=== PATIENT | male | born 1970 | race Caucasian/White ===

== ENCOUNTER 2017-03-25 14:41 | Emergency (ER) | payer OTHER ==
[2017-03-25 14:58] VITALS: TEMP 99.6
--- NOTE | 2017-03-25 15:17 | ED.PDOC ---
History of Present Illness - General Chief Complaint: Chest Pain/NE Stated Complaint: right sided chest pain,pain in head Time Seen by Provider: 03/25/17 15:09 Source: patient, RN notes reviewed, Vital Signs reviewed, EMS Exam Limitations: no limitations - History of Present Illness Initial Comments: Patient comes in with sharp/dull chest pain, "like someone kicked you in the fernandez" that started somewhere between noon and 14:00 today. Pain is to the right of his sternum. +SOB but no change from his baseline. + nausea. No diaphoresis but got hot. Pain does not seem to worsen with getting up and moving around. Upon arrival by EMS he got up and walked to the bathroom before getting on the ER bed. He also has been having a right sided NAVARRETE for the past several weeks. Reports it feels like a hot poker. Right behind his R ear. He has been taking baby aspirin and ibuprofen for this. Pain is different than his past migraines. Timing/Duration: 1-3 hours Severity/Quality: mild - chest pain, severe - headache, dull - chest, sharp - NAVARRETE Location: other - Just to right of sternum Chest Pain Radiation: no radiation Prior Chest Pain/Cardiac Workup: other - has atrial fibrillation Improving Factors: nothing Worsening Factors: nothing Aspirin Treatment Today: 81 mg x 2 Associated Symptoms: headache, nausea/vomiting, shortness of breath Allergies/Adverse Reactions: Allergies Tramadol Allergy (Verified 03/25/17 14:58) Home Medications: Ambulatory Orders Citalopram Hydrobromide 20 mg PO BID 11/24/15 Furosemide 40 mg PO DAILY 11/24/15 Levothyroxine Sodium 50 mcg PO DAILY 11/24/15 Lisinopril 40 mg PO BID 11/24/15 Potassium Chloride Microencaps [Klor-Con M20] 20 meq PO BID 11/24/15 Terazosin [Hytrin] 5 mg PO BID 11/24/15 acetaZOLAMIDE [Diamox] 250 mg PO DAILY 11/24/15 Apixaban [Eliquis] 5 mg PO BID 02/10/16 metFORMIN HCL [Glucophage] 500 mg PO BID 02/10/16 Acetaminophen W/ Codeine [Tylenol W/ CODEINE #3] 1 tablet PO Q4HR PRN #20 03/25 Cefuroxime Axetil [Ceftin] 500 mg PO BID #42 tab 03/25/17 Celecoxib 200 mg PO BID 03/25/17 Diltiazem HCl Coated Beads [Cartia Xt] 240 mg PO BID 03/25/17 Fluticasone Furoate-Vilanterol [Breo Ellipta] 1 inh IN DAILY 03/25/17 Lovastatin 20 mg PO DAILY 03/25/17 Melatonin 20 mg PO BEDTIME 03/25/17 Umeclidinium Kent [Incruse Ellipta] 62.5 mcg IN DAILY 03/25/17 acetaZOLAMIDE [Diamox] 250 mg PO DAILY 03/25/17 Review of Systems - Review of Systems Constitutional: States: no symptoms reported. Denies: diaphoresis EENTM: States: no symptoms reported Respiratory: States: short of breath - chronic, denies change from baseline Cardiology: States: chest pain. Denies: palpitations, syncope Gastrointestinal/Abdominal: States: nausea. Denies: abdominal pain Musculoskeletal: States: no symptoms reported Skin: States: no symptoms reported Neurological: States: see HPI, headache All other Systems: No Change from Baseline Past Medical History (General) - Patient Medical History Hx Seizures: No Hx Stroke: No Hx Dementia: No Hx Asthma: Yes - emphysemia Hx of COPD: Yes Hx Cardiac Disorders: Yes - Atrial fibrillation Hx Congestive Heart Failure: No Hx Pacemaker: No Hx Hypertension: Yes Hx Thyroid Disease: Yes Hx Diabetes: Yes Hx Gastroesophageal Reflux: No Hx Renal Disease: No Hx MRSA: Yes MRSA Source:: Wound - Vaccination History Hx Tetanus, Diphtheria Vaccination: No Hx Influenza Vaccination: No Hx Pneumococcal Vaccination: Yes - Social History Hx Tobacco Use: Yes Family Medical History - Family History Father Family History: Unknown Living Status: Cause of : NE Hx Family Stroke: Yes Mother Living Status: Cause of : Breast CA Physical Exam - Physical Exam General Appearance: Alert, No apparent distress, Obese, Well Developed, Well Hydrated, Well Nourished Eyes, Ears, Nose, Throat Exam: PERRL/EOMI, normal ENT inspection, pharynx normal , other - Very tender R mastoid sinus Neck: non-tender, full range of motion, supple, normal inspection Respiratory: lungs clear, normal breath sounds, no respiratory distress, no accessory muscle use, other - R sided chest wall tenderness Cardiovascular/Chest: no edema, no gallop, no murmur, irregularly irregular Gastrointestinal/Abdominal: normal bowel sounds, non tender, soft Extremity: normal range of motion, non-tender, normal inspection 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 Will get chest CT 03/25/17 18:16 Both sets of cardiac enzymes are normal. Will d/c home on Ceftin for sinusitis/mastoiditis Will give Tyl #3 for pain/NAVARRETE - Results/Orders Results/Orders: Laboratory Tests 03/25/17 03/25/17 03/25/17 14:12 14:12 14:12 WBC 10.1 RBC 5.58 Hgb 14.8 Hct 45.8 MCV 82.1 MCH 26.4 L MCHC 32.2 L RDW 15.6 H Plt Count 271 MPV 8.6 Absolute Neuts (auto) 8.50 H Absolute Lymphs (auto) 0.60 L Absolute Monos (auto) 0.50 Absolute Eos (auto) 0.40 Absolute Basos (auto) 0.10 Neutrophils % 84.3 H Lymphocytes % 6.0 L Monocytes % 5.4 Eosinophils % 3.8 Basophils % 0.5 D-Dimer, Quantitative 85467 H* Sodium 133 L Potassium 3.9 Chloride 99 L Carbon Dioxide 26 Anion Gap 11.9 L BUN 22 H Creatinine 1.30 BUN/Creatinine Ratio 16.9 Random Glucose 100 Serum Osmolality 269.8 L Calcium 8.9 Total Bilirubin 0.9 AST 17 ALT 17 Alkaline Phosphatase 62 Creatine Kinase 112 CK-MB (CK-2) 1.3 CK-MB (CK-2) % Not Reportable Troponin I < 0.02 B-Natriuretic Peptide 69.0 Serum Total Protein 7.5 Albumin 4.0 Globulin 3.5 Albumin/Globulin Ratio 1.1 03/25/17 17:47 WBC RBC Hgb Hct MCV MCH MCHC RDW Plt Count MPV Absolute Neuts (auto) Absolute Lymphs (auto) Absolute Monos (auto) Absolute Eos (auto) Absolute Basos (auto) Neutrophils % Lymphocytes % Monocytes % Eosinophils % Basophils % D-Dimer, Quantitative Sodium Potassium Chloride Carbon Dioxide Anion Gap BUN Creatinine BUN/Creatinine Ratio Random Glucose Serum Osmolality Calcium Total Bilirubin AST ALT Alkaline Phosphatase Creatine Kinase 107 CK-MB (CK-2) 0.8 CK-MB (CK-2) % Not Reportable Troponin I < 0.02 B-Natriuretic Peptide Serum Total Protein Albumin Globulin Albumin/Globulin Ratio - EKG/XRAY/CT EKG: Atrial, Fibrillation, nonspecific ST T wave Chg Comments: Other than no longer with RVR no significant change from 11/24/15 XRAY: chest - Min. enlarged heart, o/w nl per Rad CT: Chest CT: No PE per Radiologist CT Ordered: Yes - Head: R frontal/ethmoid sinusitis, o/w nl per Rad Departure - Departure Clinical Impression: Chest pain Qualifiers: Chest pain type: unspecified Qualified Code(s): R07.9 - Chest pain, unspecified Mastoiditis Qualifiers: Laterality: right Qualified Code(s): H70.91 - Unspecified mastoiditis, right ear Sinusitis, acute ethmoidal Qualifiers: Recurrence: non-recurrent Qualified Code(s): J01.20 - Acute ethmoidal sinusitis , unspecified Time of Disposition: 18:19 Disposition: Discharge to Home or Self Care Condition: Good Departure Forms: ED Discharge - Pt. Copy, Patient Portal Self Enrollment Instructions: DI for Mastoiditis-Adult, DI for Atypical Chest Pain, DI for Sinusitis Diet: resume usual diet Activity: increase activity as tolerated Referrals: Kayce Lundberg NP [Primary Care Provider] - 1-2 Weeks Prescriptions: Acetaminophen W/ Codeine [Tylenol W/ CODEINE #3] 1 tablet PO Q4HR PRN #20 PRN Reason: Headache/Migraine Pain Cefuroxime Axetil [Ceftin] 500 mg PO BID #42 tab Home Medications: Ambulatory Orders Citalopram Hydrobromide 20 mg PO BID 11/24/15 Furosemide 40 mg PO DAILY 11/24/15 Levothyroxine Sodium 50 mcg PO DAILY 11/24/15 Lisinopril 40 mg PO BID 11/24/15 Potassium Chloride Microencaps [Klor-Con M20] 20 meq PO BID 11/24/15 Terazosin [Hytrin] 5 mg PO BID 11/24/15 acetaZOLAMIDE [Diamox] 250 mg PO DAILY 11/24/15 Apixaban [Eliquis] 5 mg PO BID 02/10/16 metFORMIN HCL [Glucophage] 500 mg PO BID 02/10/16 Acetaminophen W/ Codeine [Tylenol W/ CODEINE #3] 1 tablet PO Q4HR PRN #20 03/25 Cefuroxime Axetil [Ceftin] 500 mg PO BID #42 tab 03/25/17 Celecoxib 200 mg PO BID 03/25/17 Diltiazem HCl Coated Beads [Cartia Xt] 240 mg PO BID 03/25/17 Fluticasone Furoate-Vilanterol [Breo Ellipta] 1 inh IN DAILY 03/25/17 Lovastatin 20 mg PO DAILY 03/25/17 Melatonin 20 mg PO BEDTIME 03/25/17 Umeclidinium [place] [Incruse Ellipta] 62.5 mcg IN DAILY 03/25/17 acetaZOLAMIDE [Diamox] 250 mg PO DAILY 03/25/17
--- NOTE | 2017-03-25 15:27 | RAD ---
EXAM DESCRIPTION: Chest,1 View CLINICAL HISTORY: Sharp NAVARRETE behind R ear COMPARISON: February 10, 2016 FINDINGS: The study is limited by underpenetrated technique. This in mind, the heart is at the upper limits of normal size, stable. There is no airspace consolidation or pleural effusion. The bronchovascular markings are within normal limits, and the lungs are not hyperinflated. There is no pneumothorax or acute fracture. IMPRESSION: Borderline heart size, otherwise unremarkable exam. Electronically signed by: Dougie Guerrero MD 03/25/2017 3:26 PM CDT
--- NOTE | 2017-03-25 15:48 | CT ---
EXAM DESCRIPTION: Head CLINICAL HISTORY: Chest pain w/ SOB headache COMPARISON: None TECHNIQUE: Noncontrast transaxial CT images of the head are obtained from base to vertex. This exam was performed according to our departmental dose-optimization program, which includes automated exposure control, adjustment of the mA and/or kV according to patient size and/or use of iterative reconstruction technique. FINDINGS: The midline structures are not displaced. The sulci are age appropriate. The lateral, third, and fourth ventricles are normal in size, shape, and anatomic positioning. There is no evidence of mass, mass effect, hydrocephalus, or acute intracranial hemorrhage. No abnormal extra axial fluid collections are seen. Normal mensah-white differentiation is seen. Mild calcifications of the intracranial carotid arteries are seen. The visualized bone windows show no depressed skull fracture or significant abnormality. Mucosal thickening and opacification of the small right frontal sinus is seen. Mucosal thickening in several ethmoid air cells is noted. Probable cyst around the root of a right mid maxillary molar incidentally noted.. IMPRESSION: 1. No acute abnormality is seen on noncontrast CT of the head. 2. Mild subacute to chronic frontal and ethmoid sinus disease. Electronically signed by: Sal Price MD 03/25/2017 3:47 PM CDT
--- NOTE | 2017-03-25 16:28 | CT ---
PROCEDURE: CTA Chest CLINICAL HISTORY: 46 years Male R side CP/SOB/Elevated D-dimer COMPARISON: 02/10/2016 TECHNIQUE: Contiguous axial images were obtained through the chest during the infusion of IV contrast. Reformatted images obtained. MIP reformatted images obtained. This exam was performed according to our department optimization program which includes automated exposure control, adjustment of the mA and/or kv according to patient size and/or use of iterative reconstruction technique. FINDINGS: Cardiac size is at the upper limits of normal. No evidence aortic dissection or rupture. No evidence of pulmonary embolus. No consolidating infiltrate or pneumothorax. No evidence of pericardial pleural effusion. Mildly prominent hilar lymph nodes. Mildly prominent 80 cm lymph nodes. Straightening of the normal thoracic kyphosis. IMPRESSION:No evidence of pulmonary embolus No evidence of acute process Mildly prominent mediastinal and hilar lymph nodes which are nonspecific Electronically signed by: Claudine Trejo 03/25/2017 4:27 PM CDT
[2017-03-25] MEDS ORDERED: ONDANSETRON INJ 4 MG/2 ML VIAL IV ONE (16:36)
[2017-03-25] MEDS ORDERED: methylPREDNISolone SODIUM SUC 125 MG/2 ML VIAL IV ONE (16:36)
[2017-03-25] MEDS ORDERED: MORPHINE SULFATE INJ 10 MG/ML VIAL IV ONE (16:36)
[2017-03-25] MEDS ORDERED: KETOROLAC TROMETHAMINE INJ 30 MG/ML VIAL IV ONE (17:53)
[2017-03-25] MEDS ORDERED: CEFUROXIME AXETIL TAB 250 MG TAB PO ONE (18:16)
[2017-03-25 18:34] VITALS: BP 139/75; O2SAT 99
== END 2017-03-25 18:34 | disposition home or self-care (01) ==
LOC: ER 14:41
DX: R07.9 Chest pain, unspecified (principal); H70.91 Unspecified mastoiditis, right ear; J01.20 Acute ethmoidal sinusitis, unspecified; I48.91 Unspecified atrial fibrillation; E11.9 Type 2 diabetes mellitus without complications; Z87.891 Personal history of nicotine dependence; J44.9 Chronic obstructive pulmonary disease, unspecified; Z79.899 Other long term (current) drug therapy; Z88.6 Allergy status to analgesic agent
CPT/HCPCS: 36415; 70450; 71010; 71275; 80053; 82550; 82553; 83880; 84484; 85025; 85379; 93005; J1885; J2270; J2405; J2930

== ENCOUNTER 2017-06-26 20:23 | Emergency (ER) | payer OTHER, MEDICARE ==
--- NOTE | 2017-06-26 20:29 | ED.PDOC ---
History of Present Illness - General Chief Complaint: Trauma Time Seen by Provider: 06/26/17 20:25 Source: patient, RN notes reviewed, EMS notes reviewed Additional Information: 47 YEAR OLD WHITE MALE FELL OFF HIS BED TODAY STRUCK THE RIGHT SIDE OF HIS HEAD ON THE OXYGEN CYLINDER POSSIBLE LOSS OF CONCIOUNESS FOR MORE THAN 30 MIN ALSO COMPLAINT OF CHRONIC RIGHT LEG PAIN HE HAS HISTORY OF TYPE II DM HTN ATRIAL FIBRILLATION AND HE THINKS HE IS ON ANTICOAGULATION ELIQUIS HE HAS NOT SEEN A SUBSYSTEMS ENGINEER TODAY HE HAS NO SYMPTOMS TO SUGGEST CHF OR A TIA HIS MAIN CONCERN IS RIGHT LEG PAIN FOR SEVERAL MONTHS APPARENTLY HIS PCP HAS WORKED HIM UP WITH MRI BUT REPORTED NORMAL HE HAS GOOD PULSES IN BOTH LOWER EXTREMITY SO UNLIKELY TO BE VASCULAR ETIOLOGY - History of Present Illness Occurred: just prior to arrival Injuries/Pain Location: head Loss of Consciousness: prolonged (minutes) Improving Factors: nothing Worsening Factors: nothing Associated Symptoms (Fall): headache Allergies/Adverse Reactions: Allergies Tramadol Allergy (Verified 03/25/17 14:58) Home Medications: Ambulatory Orders Citalopram Hydrobromide 20 mg PO BID 11/24/15 Furosemide 40 mg PO DAILY 11/24/15 Levothyroxine Sodium 50 mcg PO DAILY 11/24/15 Lisinopril 40 mg PO BID 11/24/15 Potassium Chloride Microencaps [Klor-Con M20] 20 meq PO BID 11/24/15 acetaZOLAMIDE [Diamox] 250 mg PO DAILY 11/24/15 Apixaban [Eliquis] 5 mg PO BID 02/10/16 metFORMIN HCL [Glucophage] 500 mg PO BID 02/10/16 Acetaminophen W/ Codeine [Tylenol W/ CODEINE #3] 1 tablet PO Q4HR PRN #20 03/25 Cefuroxime Axetil [Ceftin] 500 mg PO BID #42 tab 03/25/17 Celecoxib 200 mg PO BID 03/25/17 Diltiazem HCl Coated Beads [Cartia Xt] 240 mg PO BID 03/25/17 Fluticasone Furoate-Vilanterol [Breo Ellipta] 1 inh IN DAILY 03/25/17 Lovastatin 20 mg PO DAILY 03/25/17 Melatonin 20 mg PO BEDTIME 03/25/17 Umeclidinium Bazine [Incruse Ellipta] 62.5 mcg IN DAILY 03/25/17 HYDROcodone 10MG/APAP 325MG [[place] 10/325] 1 ea PO 06/26/17 Tramadol HCl [Ultram] 50 mg PO Q6H PRN #30 tab 06/26/17 Review of Systems - Review of Systems Constitutional: States: see HPI EENTM: States: no symptoms reported Respiratory: States: no symptoms reported Cardiology: States: no symptoms reported Gastrointestinal/Abdominal: States: no symptoms reported Genitourinary: States: no symptoms reported Musculoskeletal: States: see HPI Skin: States: no symptoms reported Neurological: States: see HPI Endocrine: States: no symptoms reported Hematologic/Lymphatic: States: no symptoms reported All other Systems: Reviewed and Negative Past Medical History (General) - Patient Medical History Hx Seizures: No Hx Stroke: No Hx Dementia: No Hx Asthma: Yes - emphysemia Hx of COPD: Yes Hx Cardiac Disorders: Yes - Atrial fibrillation Hx Congestive Heart Failure: No Hx Pacemaker: No Hx Hypertension: Yes Hx Thyroid Disease: Yes Hx Diabetes: Yes Hx Gastroesophageal Reflux: No Hx Renal Disease: No Hx MRSA: Yes MRSA Source:: Wound - Vaccination History Hx Tetanus, Diphtheria Vaccination: No Hx Influenza Vaccination: No Hx Pneumococcal Vaccination: Yes - Social History Hx Tobacco Use: Yes Physical Exam - Physical Exam General Appearance: Alert, Comfortable, Obese Head Injury: no evidence of injury Eye Exam: bilateral normal ENT Exam: hearing grossly normal, no evidence of ENT injury, no dental injury Peripheral Pulses: radial,right: 2+, radial,left: 2+, femoral,right: 2+, femoral ,left: 2+ Cardiovascular/Respiratory: no M/R/G, normal peripheral pulses, no JVD, normal breath sounds, no respiratory distress Gastrointestinal/Abdominal: normal bowel sounds, non tender, soft, no organomegaly, no pulsatile mass Back Exam: normal inspection Extremity Exam: no evidence of injury, normal range of motion - [place]all Coma Score Best Eye Response (Rangel): (4) open spontaneously Best Verbal Response ([place]all): (5) oriented Best Motor Response (Rangel): (6) obeys commands Departure - Departure Clinical Impression: Head injury Qualifiers: Encounter type: subsequent encounter Qualified Code(s): S09.90XD - Unspecified injury of head, subsequent encounter Atrial fibrillation Qualifiers: Atrial fibrillation type: chronic Qualified Code(s): I48.2 - Chronic atrial fibrillation Time of Disposition: 22:24 Disposition: Discharge to Home or Self Care Departure Forms: ED Discharge - Pt. Copy, Patient Portal Self Enrollment Instructions: DI for Trauma Diet: diabetic diet Activity: increase activity as tolerated Referrals: Kayce Lundberg NP [Family Provider] - 1-2 Weeks Prescriptions: Tramadol HCl [Ultram] 50 mg PO Q6H PRN #30 tab PRN Reason: Pain Home Medications: Ambulatory Orders Citalopram Hydrobromide 20 mg PO BID 11/24/15 Furosemide 40 mg PO DAILY 11/24/15 Levothyroxine Sodium 50 mcg PO DAILY 11/24/15 Lisinopril 40 mg PO BID 11/24/15 Potassium Chloride Microencaps [Klor-Con M20] 20 meq PO BID 11/24/15 acetaZOLAMIDE [Diamox] 250 mg PO DAILY 11/24/15 Apixaban [Eliquis] 5 mg PO BID 02/10/16 metFORMIN HCL [Glucophage] 500 mg PO BID 02/10/16 Acetaminophen W/ Codeine [Tylenol W/ CODEINE #3] 1 tablet PO Q4HR PRN #20 03/25 Cefuroxime Axetil [Ceftin] 500 mg PO BID #42 tab 03/25/17 Celecoxib 200 mg PO BID 03/25/17 Diltiazem HCl Coated Beads [Cartia Xt] 240 mg PO BID 03/25/17 Fluticasone Furoate-Vilanterol [Breo Ellipta] 1 inh IN DAILY 03/25/17 Lovastatin 20 mg PO DAILY 03/25/17 Melatonin 20 mg PO BEDTIME 03/25/17 Umeclidinium Bazine [Incruse Ellipta] 62.5 mcg IN DAILY 03/25/17 HYDROcodone 10MG/APAP 325MG [[place] 10/325] 1 ea PO 06/26/17 Tramadol HCl [Ultram] 50 mg PO Q6H PRN #30 tab 06/26/17
[2017-06-26 20:35] VITALS: TEMP 99.7
--- NOTE | 2017-06-26 21:33 | CT ---
Clinical History : HEAD TRAUMA , MAIN Exam : CT Head without contrast 06/26/2017 8:31 PM PISTON [employer]ER Comparisons : none. Technique : Volumetric CT acquisition was performed through the brain. Images in the axial, coronal, and sagittal planes were presented for interpretation. This exam was performed according to our departmental dose-optimization program, which includes automated exposure control, adjustment of the mA and/or kV according to patient size and/or use of iterative reconstruction technique. Radiation dose : [id number] Findings: The soft tissue structures of the face, scalp, and orbits are normal. The globes remain intact. There is mucosal thickening throughout the left maxillary sinus and ethmoid air cells as well as the left sphenoid sinus. The rest of the paranasal sinuses and mastoid air cells are largely clear. The calvarium remains intact . There is no acute intracranial hemorrhage, midline shift, or mass effect. The ventricles are normal in size and the posterior fossa structures are normal in appearance. Limited evaluation of the vasculature demonstrates no gross abnormalities. There is no CT evidence of acute infarction. Impression: 1. No acute intracranial traumatic injury. 2. Sinus disease. Electronically signed by: Burt Steward MD 06/26/2017 9:32 PM PISTON [employer]
[2017-06-26 23:30] VITALS: BP 154/103; O2SAT 96
== END 2017-06-26 23:00 | disposition home or self-care (01) ==
LOC: ER 20:23
DX: S09.90XA Unspecified injury of head, initial encounter (principal); I48.2 Chronic atrial fibrillation; I10 Essential (primary) hypertension; E11.9 Type 2 diabetes mellitus without complications; E07.9 Disorder of thyroid, unspecified; W06.XXXA Fall from bed, initial encounter; Y92.9 Unspecified place or not applicable

== ENCOUNTER 2017-07-18 21:29 | Inpatient (IN) | payer OTHER ==
[2017-07-18] MEDS ORDERED: IPRATROPIUM/ALBUTEROL 3 ML VIAL NEB ONE ×2 (21:35→22:00)
[2017-07-18] MEDS ORDERED: ALBUTEROL SULFATE 2.5 MG/3 ML VIAL NEB ONE ×2 (21:40→22:00)
[2017-07-18] MEDS ORDERED: LEVALBUTEROL NEBS 1.25 MG/3 ML VIAL NEB ONE ×2 (21:56→22:01)
[2017-07-18] MEDS ORDERED: LACTATED RINGERS 1,000 ML IVS ONE (22:08)
[2017-07-18] MEDS ORDERED: methylPREDNISolone SODIUM SUC 125 MG/2 ML VIAL IV ONE (22:08)
[2017-07-18] MEDS ORDERED: SODIUM CHLORIDE 0.9% 1000ML 1,000 ML IVS ONE (22:17)
[2017-07-18] MEDS ORDERED: SODIUM CHLORIDE 0.9% 1000ML 1,000 ML ONE (22:18)
--- NOTE | 2017-07-18 22:54 | RAD ---
EXAM DESCRIPTION: Chest,1 View CLINICAL HISTORY: sob COMPARISON: None FINDINGS: Cardiac silhouette is enlarged which could be secondary to cardiomegaly. Indistinctness of pulmonary vessels could be secondary to pulmonary edema. There is no pneumothorax. There is no acute osseous process visualized. IMPRESSION: Indistinctness of pulmonary vessels could be secondary to pulmonary edema. Electronically signed by: Eric Chowdhury MD 07/18/2017 10:53 PM [employer]
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
[2017-07-18] MEDS ORDERED: BUMETANIDE 0.25 MG/ML VIAL IV ONE (23:47)
[2017-07-19] MEDS ORDERED: cefTRIAXone SODIUM 1 GM in SODIUM CHL 0.9% 50ML MIN-BAG+ 50 ML IVPB ONE (01:33)
[2017-07-19] MEDS ORDERED: cefTRIAXone SODIUM 1 GM VIAL ONE (02:12)
[2017-07-19] MEDS ORDERED: SODIUM CHL 0.9% 50ML MIN-BAG+ 50 ML IVPB ONE (02:12)
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
[2017-07-19] MEDS ORDERED: GLUCAGON INJ 1 MG VIAL SUBCU PRN (02:37)
[2017-07-19] MEDS ORDERED: LEVALBUTEROL NEBS 1.25 MG/3 ML VIAL INH PRN (02:37)
[2017-07-19] MEDS ORDERED: DEXTROSE 50% 25 GM/50 ML SYG IV PRN (02:37)
[2017-07-19] MEDS: NITROGLYCERIN 0.4 MG/HR PATCH TOP SCH (03:14)
[2017-07-19] MEDS: IV SET AND CAP CHANGE INJ INJ SCH (03:21)
[2017-07-19] MEDS ORDERED: SODIUM CHLORIDE 0.9% 250ML 250 ML ONE (03:41)
[2017-07-19] MEDS ORDERED: AZITHROMYCIN IV 500 MG VIAL IVPB ONE (03:42)
[2017-07-19] MEDS ORDERED: DEXAMETHASONE INJ 2 MG, SODIUM CHLORIDE 0.9% NEB 3 ML NEB ONE ×2 (03:47)
[2017-07-19] MEDS ORDERED: LISINOPRIL 10 MG TAB PO ONE (03:49)
[2017-07-19] MEDS ORDERED: ALPRAZolam 0.25 MG TAB PO ONE (03:56)
[2017-07-19] MEDS: AZITHROMYCIN IV 500 MG in SODIUM CHLORIDE 0.9% 250ML 250 ML IVPB SCH (04:00)
[2017-07-19] MEDS: methylPREDNISolone SODIUM SUC 125 MG/2 ML VIAL IV SCH ×3 (04:06→17:03)
[2017-07-19] MEDS: SODIUM CHLORIDE 0.9% (FLUSH) 10 ML SYG IV PRN (04:06)
[2017-07-19] MEDS ORDERED: DEXAMETHASONE INJ 4 MG/ML VIAL ONE (04:11)
[2017-07-19] MEDS ORDERED: SODIUM CHLORIDE 0.9% NEB 3 ML VIAL ONE (04:11)
[2017-07-19] MEDS ORDERED: DILTIAZEM HCL COATED BEADS 240 MG PO SCH (06:00)
[2017-07-19] MEDS: HYDROcodone 10MG/APAP 325MG 1 EA TAB PO PRN (06:38)
--- NOTE | 2017-07-19 07:45 | PCM.CORE ---
Physician DVT/VTE - Prophylaxis Currently: Patient already on anticoagulation therapy - gillian - Nurse DVT Assessment & Total Each Risk Factor Represents 3 Points: Medical PT with Hx of [place], CHF, Severe infection/sepsis Each Risk Factor Represents 1 Point: Age 41-60 Each Risk Factor is 1 Point: Varicose Veins/Edema Legs, Obesity (BMI >25), Serious Lung disease (pnemonia <1month, COPD, emphysema,etc) DVT Assessment Score: 7 - 5 or more Very High Risk Treatments: Early Ambulation *, Sequential Compression Device
[2017-07-19] MEDS: INSULIN LISPRO 100 UNITS/ML PEN SUBCU SCH ×4 (08:04→20:57)
[2017-07-19] MEDS: LEVALBUTEROL NEBS 1.25 MG/3 ML VIAL INH SCH ×2 (08:41→16:10)
[2017-07-19] MEDS: NON-FORMULARY MEDICATION 1 EA MIS (Fluticasone Furoate-Vilanterol [Breo Ellipta 100-25 Mcg IN SCH (09:00)
[2017-07-19] MEDS ORDERED: HYDROcodone 10MG/APAP 325MG 1 EA TAB PO SCH (09:00)
[2017-07-19] MEDS ORDERED: FUROSEMIDE INJ 100 MG/10 ML VIAL IV SCH (09:00)
[2017-07-19] MEDS ORDERED: FUROSEMIDE INJ 40 MG/4 ML VIAL IV ONE (09:00)
[2017-07-19] MEDS: CELECOXIB 100 MG CAP PO SCH ×2 (09:15→20:58)
[2017-07-19] MEDS: acetaZOLAMIDE 250 MG TAB PO SCH (09:15)
[2017-07-19] MEDS: LEVOTHYROXINE SODIUM 0.025 MG TAB PO SCH (09:15)
[2017-07-19] MEDS: metFORMIN HCL 500 MG TAB PO SCH ×2 (09:16→17:05)
[2017-07-19] MEDS: APIXABAN 2.5 MG TAB PO SCH ×2 (09:16→20:59)
[2017-07-19] MEDS: SIMVASTATIN 10 MG TAB PO SCH ×3 (09:16→21:01)
[2017-07-19] MEDS: guaiFENesin ER TAB 600 MG TAB PO SCH ×2 (09:17→21:00)
[2017-07-19] MEDS: POTASSIUM CHLORIDE 20 MEQ TAB PO SCH ×2 (09:17→17:05)
[2017-07-19] MEDS: CITALOPRAM HBR 20 MG TAB PO SCH ×2 (09:19→20:59)
[2017-07-19] MEDS: NON-FORMULARY MEDICATION 1 EA MIS (Umeclidinium Bromide [Incruse Ellipta] 62.5 MCG) IN SCH (09:20)
[2017-07-19] MEDS ORDERED: MELATONIN 3 MG TAB ONE (20:03)
[2017-07-19] MEDS ORDERED: NON-FORMULARY MEDICATION 1 EA MIS (Melatonin [Melatonin] 20 MG) PO SCH (21:00)
[2017-07-19] MEDS ORDERED: LISINOPRIL 10 MG TAB PO SCH (21:00)
[2017-07-19] MEDS: LISINOPRIL 10 MG TAB PO SCH (21:26)
[2017-07-19] MEDS: MELATONIN 3 MG TAB PO SCH (21:28)
[2017-07-20] MEDS: LEVALBUTEROL NEBS 1.25 MG/3 ML VIAL INH SCH ×4 (00:01→23:34)
[2017-07-20] MEDS ORDERED: SODIUM CHLORIDE 0.9% 250ML 250 ML ONE (03:14)
[2017-07-20] MEDS ORDERED: AZITHROMYCIN IV 500 MG VIAL IVPB ONE (03:15)
[2017-07-20] MEDS: AZITHROMYCIN IV 500 MG in SODIUM CHLORIDE 0.9% 250ML 250 ML IVPB SCH (03:21)
[2017-07-20] MEDS: NITROGLYCERIN 0.4 MG/HR PATCH TOP SCH (03:21)
[2017-07-20] MEDS: LEVOTHYROXINE SODIUM 0.025 MG TAB PO SCH (06:00)
--- NOTE | 2017-07-20 06:58 | RAD ---
EXAM: Two view chest. INDICATION: Pneumonia. COMPARISON: Chest x-ray: 07/18/2017. FINDINGS: Cardiac silhouette: Enlarged Alix: Pulmonary vascular congestion Lobar consolidation: None. Pleural effusion: None. Pneumothorax: None. Other: None. Bones: Unremarkable. Other: None. IMPRESSION: Pulmonary vascular congestion Electronically signed by: Maximino Washington MD 07/20/2017 6:57 AM [employer]HICLE [employer]SEM[employer] SUPERVISOR Workstation: [id number]
[2017-07-20] MEDS: INSULIN LISPRO 100 UNITS/ML PEN SUBCU SCH ×4 (07:11→21:00)
[2017-07-20] MEDS: metFORMIN HCL 500 MG TAB PO SCH ×2 (07:55→17:40)
[2017-07-20] MEDS: POTASSIUM CHLORIDE 20 MEQ TAB PO SCH ×2 (07:55→17:40)
[2017-07-20] MEDS ORDERED: methylPREDNISolone SODIUM SUC 125 MG/2 ML VIAL IM ONE (08:37)
[2017-07-20] MEDS: NON-FORMULARY MEDICATION 1 EA MIS (Umeclidinium Bromide [Incruse Ellipta] 62.5 MCG) IN SCH (09:00)
[2017-07-20] MEDS: NON-FORMULARY MEDICATION 1 EA MIS (Fluticasone Furoate-Vilanterol [Breo Ellipta 100-25 Mcg IN SCH (09:00)
[2017-07-20] MEDS: guaiFENesin ER TAB 600 MG TAB PO SCH ×2 (09:27→20:59)
[2017-07-20] MEDS: APIXABAN 2.5 MG TAB PO SCH ×2 (09:27→20:59)
[2017-07-20] MEDS: acetaZOLAMIDE 250 MG TAB PO SCH (09:27)
[2017-07-20] MEDS: LISINOPRIL 10 MG TAB PO SCH ×2 (09:28→20:59)
[2017-07-20] MEDS: CITALOPRAM HBR 20 MG TAB PO SCH ×2 (09:28→20:58)
[2017-07-20] MEDS: CELECOXIB 100 MG CAP PO SCH ×2 (09:28→20:58)
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
[2017-07-20] MEDS: methylPREDNISolone SODIUM SUC 40 MG/ML VIAL IV SCH ×2 (15:00→22:32)
[2017-07-20] MEDS: REMOVE OLD PATCH TOP SCH (15:06)
[2017-07-20] MEDS: SIMVASTATIN 10 MG TAB PO SCH (20:59)
[2017-07-20] MEDS: MELATONIN 3 MG TAB PO SCH (21:00)
[2017-07-21] MEDS ORDERED: ACETAMINOPHEN 325 MG TAB PO PRN (02:11)
[2017-07-21] MEDS ORDERED: SODIUM CHLORIDE 0.9% 250ML 250 ML ONE ×2 (03:07→19:24)
[2017-07-21] MEDS ORDERED: AZITHROMYCIN IV 500 MG VIAL IVPB ONE ×2 (03:08→19:25)
[2017-07-21] MEDS: AZITHROMYCIN IV 500 MG in SODIUM CHLORIDE 0.9% 250ML 250 ML IVPB SCH (03:20)
[2017-07-21] MEDS: NITROGLYCERIN 0.4 MG/HR PATCH TOP SCH (03:20)
[2017-07-21] MEDS: methylPREDNISolone SODIUM SUC 40 MG/ML VIAL IV SCH ×3 (06:01→21:35)
[2017-07-21] MEDS: LEVOTHYROXINE SODIUM 0.025 MG TAB PO SCH (06:01)
[2017-07-21] MEDS: INSULIN LISPRO 100 UNITS/ML PEN SUBCU SCH ×4 (07:35→21:21)
[2017-07-21] MEDS: POTASSIUM CHLORIDE 20 MEQ TAB PO SCH ×2 (07:36→16:39)
[2017-07-21] MEDS: metFORMIN HCL 500 MG TAB PO SCH ×2 (07:36→16:39)
[2017-07-21] MEDS: NON-FORMULARY MEDICATION 1 EA MIS (Fluticasone Furoate-Vilanterol [Breo Ellipta 100-25 Mcg IN SCH (08:14)
[2017-07-21] MEDS: NON-FORMULARY MEDICATION 1 EA MIS (Umeclidinium Bromide [Incruse Ellipta] 62.5 MCG) IN SCH (08:15)
[2017-07-21] MEDS: LEVALBUTEROL NEBS 1.25 MG/3 ML VIAL INH SCH ×2 (08:20→16:04)
[2017-07-21] MEDS: CELECOXIB 100 MG CAP PO SCH ×2 (08:52→21:18)
[2017-07-21] MEDS: APIXABAN 2.5 MG TAB PO SCH ×2 (08:53→21:18)
[2017-07-21] MEDS: acetaZOLAMIDE 250 MG TAB PO SCH (08:53)
[2017-07-21] MEDS: CITALOPRAM HBR 20 MG TAB PO SCH ×2 (08:53→21:21)
[2017-07-21] MEDS: guaiFENesin ER TAB 600 MG TAB PO SCH ×2 (08:53→21:18)
[2017-07-21] MEDS: HYDROcodone 10MG/APAP 325MG 1 EA TAB PO PRN (09:01)
[2017-07-21] MEDS: LISINOPRIL 10 MG TAB PO SCH ×3 (09:03→21:57)
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
[2017-07-21] MEDS: REMOVE OLD PATCH TOP SCH (15:22)
[2017-07-21] MEDS: MELATONIN 3 MG TAB PO SCH (21:21)
[2017-07-21] MEDS: SIMVASTATIN 10 MG TAB PO SCH (21:21)
[2017-07-22] MEDS: LEVALBUTEROL NEBS 1.25 MG/3 ML VIAL INH SCH ×2 (00:36→07:45)
[2017-07-22] MEDS: NITROGLYCERIN 0.4 MG/HR PATCH TOP SCH (03:14)
[2017-07-22] MEDS: AZITHROMYCIN IV 500 MG in SODIUM CHLORIDE 0.9% 250ML 250 ML IVPB SCH (03:15)
[2017-07-22] MEDS: SODIUM CHLORIDE 0.9% (FLUSH) 10 ML SYG IV PRN (03:15)
[2017-07-22] MEDS: IV SET AND CAP CHANGE INJ INJ SCH (03:22)
[2017-07-22] MEDS: LEVOTHYROXINE SODIUM 0.025 MG TAB PO SCH (06:03)
[2017-07-22 06:12] VITALS: TEMP 97.3
[2017-07-22] MEDS: INSULIN LISPRO 100 UNITS/ML PEN SUBCU SCH (07:04)
--- NOTE | 2017-07-22 07:09 | RAD ---
EXAM DESCRIPTION: Chest,2 Views CLINICAL HISTORY: pna COMPARISON: July 20, 2017 FINDINGS: The heart is enlarged but stable from the prior study. The central bronchovascular markings are indistinct. Bilateral interstitial opacities are noted without airspace consolidation or definite pleural effusion. The right costophrenic angle is excluded from the frontal view. There is no pneumothorax or acute fracture. IMPRESSION: Cardiomegaly with bilateral interstitial prominence suggestive of pulmonary vascular congestion. Infection, including viral or other atypical causes, is a less likely consideration. Overall, findings do not appear significantly changed from 2 days prior. Electronically signed by: Dougie Guerrero MD 07/22/2017 7:08 AM [facility]
[2017-07-22] MEDS: NON-FORMULARY MEDICATION 1 EA MIS (Fluticasone Furoate-Vilanterol [Breo Ellipta 100-25 Mcg IN SCH (07:45)
[2017-07-22] MEDS: NON-FORMULARY MEDICATION 1 EA MIS (Umeclidinium Bromide [Incruse Ellipta] 62.5 MCG) IN SCH (07:46)
[2017-07-22] MEDS: POTASSIUM CHLORIDE 20 MEQ TAB PO SCH (07:58)
[2017-07-22] MEDS: metFORMIN HCL 500 MG TAB PO SCH (07:58)
[2017-07-22] MEDS: CITALOPRAM HBR 20 MG TAB PO SCH (08:03)
[2017-07-22] MEDS: CELECOXIB 100 MG CAP PO SCH (08:03)
[2017-07-22] MEDS: acetaZOLAMIDE 250 MG TAB PO SCH (08:03)
[2017-07-22] MEDS: guaiFENesin ER TAB 600 MG TAB PO SCH (08:03)
[2017-07-22] MEDS: APIXABAN 2.5 MG TAB PO SCH (08:03)
[2017-07-22] MEDS: LISINOPRIL 10 MG TAB PO SCH (08:04)
[2017-07-22] MEDS ORDERED: predniSONE 20 MG TAB PO SCH (09:00)
[2017-07-22] MEDS ORDERED: FUROSEMIDE 40 MG TAB PO SCH (10:00)
[2017-07-22 10:02] VITALS: BP 125/82; O2SAT 96
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
== END 2017-07-22 11:11 | disposition home or self-care (01) | DRG 918 ==
LOC: ER 21:29 → OBSVTOIN 07-19 02:22 → MS 07-19 02:22
PROVIDERS: ADMIT Nurse Practitioner Family; ATTEND Nurse Practitioner Acute Care
DX: T59.811A Toxic effect of smoke, accidental (unintentional), initial encounter (principal); J44.1 Chronic obstructive pulmonary disease with (acute) exacerbation; Z68.43 Body mass index [BMI] 50.0-59.9, adult; I13.0 Hypertensive heart and chronic kidney disease with heart failure and stage 1 through stage 4 chronic kidney disease, or unspecified chronic kidney disease; J44.0 Chronic obstructive pulmonary disease with (acute) lower respiratory infection; I50.9 Heart failure, unspecified; E78.5 Hyperlipidemia, unspecified; E03.9 Hypothyroidism, unspecified; I48.2 Chronic atrial fibrillation; G47.33 Obstructive sleep apnea (adult) (pediatric); N18.2 Chronic kidney disease, stage 2 (mild); E11.22 Type 2 diabetes mellitus with diabetic chronic kidney disease; L40.9 Psoriasis, unspecified; F41.9 Anxiety disorder, unspecified; E66.01 Morbid (severe) obesity due to excess calories; J70.5 Respiratory conditions due to smoke inhalation; T46.1X6A Underdosing of calcium-channel blockers, initial encounter; M54.12 Radiculopathy, cervical region; M54.16 Radiculopathy, lumbar region; R79.89 Other specified abnormal findings of blood chemistry; Z79.02 Long term (current) use of antithrombotics/antiplatelets; Z88.6 Allergy status to analgesic agent; Z87.891 Personal history of nicotine dependence; Z79.84 Long term (current) use of oral hypoglycemic drugs; Y92.029 Unspecified place in mobile home as the place of occurrence of the external cause; Z91.138 Patient's unintentional underdosing of medication regimen for other reason; Z99.81 Dependence on supplemental oxygen; Z79.891 Long term (current) use of opiate analgesic; Z79.899 Other long term (current) drug therapy; Z86.14 Personal history of Methicillin resistant Staphylococcus aureus infection

== ENCOUNTER 2018-06-02 18:32 | Emergency (ER) | payer OTHER ==
[2018-06-02] MEDS ORDERED: IPRATROPIUM/ALBUTEROL 3 ML VIAL NEB ONE (18:59)
[2018-06-02] MEDS ORDERED: SODIUM CHLORIDE 0.9% 1000ML 1,000 ML IVS ONE (19:00)
--- NOTE | 2018-06-02 19:03 | ED.PDOC ---
History of Present Illness - General Chief Complaint: Respiratory Problem Stated Complaint: shortness of breath Time Seen by Provider: 06/02/18 18:53 Source: patient Exam Limitations: no limitations - History of Present Illness Comments: Pt has had cough for 4-5 days. Today fever/ chills and weakness with worsening SOB began Timing/Duration: this morning Cough Quality/Degree: severe, productive cough Possible Cause: occasional episodes Improving Factors: nothing Worsening Factors: nothing Associated Symptoms: chest pain/soreness, fever/chills, headache, shortness of breath, wheezing Respiratory Risk Factors: no cause identified Allergies/Adverse Reactions: Allergies Tramadol Allergy (Verified 07/18/17 21:59) Home Medications: Ambulatory Orders Potassium Chloride Microencaps [Klor-Con M20] 20 meq PO BID 11/24/15 HYDROcodone 10MG/APAP 325MG [[place] 10/325] 1 ea PO TID 06/26/17 Apixaban [Eliquis] 5 mg PO BID #60 tab 07/22/17 Cefdinir 300 mg PO BID #14 capsule 07/22/17 Celecoxib 200 mg PO BID #60 cap 07/22/17 Citalopram Hydrobromide 20 mg PO BID #60 tab 07/22/17 Diltiazem HCl Coated Beads [Cartia Xt] 240 mg PO BID #60 cap 07/22/17 Fluticasone Furoate-Vilanterol [Breo Ellipta 100-25 Mcg/INH] 1 inh IN DAILY #1 inh 07/22/17 Furosemide 40 mg PO DAILY #30 tab 07/22/17 Levothyroxine Sodium 50 mcg PO DAILY #30 tab 07/22/17 Lisinopril [Prinivil] 10 mg PO BID #60 tab 07/22/17 Lovastatin 20 mg PO DAILY #30 tab 07/22/17 Melatonin 20 mg PO BEDTIME #60 tab 07/22/17 Potassium Chloride Tab [K-Dur] 20 meq PO BIDFD #60 tab 07/22/17 Prednisone See Taper PO DAILY #30 tab 07/22/17 Triamcinolone 0.5% Cream [Kenalog 0.5% Cream] 15 gm TOP BID #1 tube 07/22/17 Umeclidinium [place] [Incruse Ellipta] 62.5 mcg IN DAILY #1 inh 07/22/17 acetaZOLAMIDE [Diamox] 250 mg PO DAILY #30 tab 07/22/17 guaiFENesin ER TAB [Mucinex Tab] 600 mg PO BID tab 07/22/17 metFORMIN HCL [Glucophage] 500 mg PO BID #60 tab 07/22/17 Promethazine HCl [Promethazine Hydrochlorid] 12.5 mg PO Q6HRS #5 tab 01/24/18 Azithromycin [Zithromax Z-Sanjay] 250 mg PO QAM #6 tab 06/02/18 predniSONE 20 mg PO BID #10 tab 06/02/18 Review of Systems - Review of Systems Constitutional: States: chills, fever, weakness EENTM: States: no symptoms reported. Denies: nose congestion, throat pain Respiratory: States: cough, short of breath, wheezing Cardiology: States: no symptoms reported. Denies: chest pain Gastrointestinal/Abdominal: Denies: abdominal pain, diarrhea, nausea, vomiting Genitourinary: States: no symptoms reported Musculoskeletal: States: muscle pain, muscle stiffness Skin: States: no symptoms reported Neurological: States: headache Endocrine: States: no symptoms reported Hematologic/Lymphatic: States: no symptoms reported Past Medical History (General) - Patient Medical History Hx Seizures: No Hx Stroke: No Hx Dementia: No Hx Asthma: Yes Hx of COPD: Yes Hx Cardiac Disorders: Yes - Atrial fibrillation Hx Congestive Heart Failure: Yes Hx Pacemaker: No Hx Hypertension: Yes Hx Thyroid Disease: Yes Hx Diabetes: Yes Hx Gastroesophageal Reflux: No Hx Renal Disease: No Hx Cancer: No Hx Hepatitis C: No Hx MRSA: Yes MRSA Source:: Wound - Vaccination History Hx Tetanus, Diphtheria Vaccination: No Hx Influenza Vaccination: Yes Hx Pneumococcal Vaccination: Yes - Social History Hx Tobacco Use: Yes Hx Alcohol Use: No Hx Substance Use: No Hx Physical Abuse: No Hx Emotional Abuse: No Family Medical History - Family History Father Family History: Unknown Living Status: Cause of : MD Hx Family Asthma: Yes - multiple family members Hx Family Stroke: Yes Hx Cardiac Disease: Yes - dad/brothers Hx Family Cancer: Yes - mom-breast() Mother Living Status: Cause of : Breast CA Physical Exam - Physical Exam General Appearance: Alert, Obvious distress Eye Exam: bilateral normal ENT Exam: pharynx normal - dry mucosa Neck: non-tender, full range of motion, normal inspection Respiratory: chest non-tender, decreased breath sounds, wheezing Cardiovascular/Chest: tachycardia, irregularly irregular Gastrointestinal/Abdominal: normal bowel sounds, non tender, soft Extremity: normal inspection, no pedal edema, no calf tenderness Neurologic: alert, normal mood/affect, oriented x 3 Skin Exam: normal color, warm/dry, rash - has chronic psoriasis lesions on abd and ext's Lymphatic: no adenopathy Departure - Departure Clinical Impression: COPD exacerbation Disposition: Discharge to Home or Self Care Departure Forms: ED Discharge - Pt. Copy, Patient Portal Self Enrollment Referrals: JOSY STAHL [Primary Care Provider] - 1-2 Weeks Prescriptions: Azithromycin [Zithromax Z-Sanjay] 250 mg PO QAM #6 tab predniSONE 20 mg PO BID #10 tab Home Medications: Ambulatory Orders Potassium Chloride Microencaps [Klor-Con M20] 20 meq PO BID 11/24/15 HYDROcodone 10MG/APAP 325MG [[place] 10/325] 1 ea PO TID 06/26/17 Apixaban [Eliquis] 5 mg PO BID #60 tab 07/22/17 Cefdinir 300 mg PO BID #14 capsule 07/22/17 Celecoxib 200 mg PO BID #60 cap 07/22/17 Citalopram Hydrobromide 20 mg PO BID #60 tab 07/22/17 Diltiazem HCl Coated Beads [Cartia Xt] 240 mg PO BID #60 cap 07/22/17 Fluticasone Furoate-Vilanterol [Breo Ellipta 100-25 Mcg/INH] 1 inh IN DAILY #1 inh 07/22/17 Furosemide 40 mg PO DAILY #30 tab 07/22/17 Levothyroxine Sodium 50 mcg PO DAILY #30 tab 07/22/17 Lisinopril [Prinivil] 10 mg PO BID #60 tab 07/22/17 Lovastatin 20 mg PO DAILY #30 tab 07/22/17 Melatonin 20 mg PO BEDTIME #60 tab 07/22/17 Potassium Chloride Tab [K-Dur] 20 meq PO BIDFD #60 tab 07/22/17 Prednisone See Taper PO DAILY #30 tab 07/22/17 Triamcinolone 0.5% Cream [Kenalog 0.5% Cream] 15 gm TOP BID #1 tube 07/22/17 Umeclidinium [place] [Incruse Ellipta] 62.5 mcg IN DAILY #1 inh 07/22/17 acetaZOLAMIDE [Diamox] 250 mg PO DAILY #30 tab 07/22/17 guaiFENesin ER TAB [Mucinex Tab] 600 mg PO BID tab 07/22/17 metFORMIN HCL [Glucophage] 500 mg PO BID #60 tab 07/22/17 Promethazine HCl [Promethazine Hydrochlorid] 12.5 mg PO Q6HRS #5 tab 01/24/18 Azithromycin [Zithromax Z-Sanjay] 250 mg PO QAM #6 tab 06/02/18 predniSONE 20 mg PO BID #10 tab 06/02/18
--- NOTE | 2018-06-02 19:32 | RAD ---
EXAM DESCRIPTION: Chest,1 View CLINICAL HISTORY: sob COMPARISON: July 22, 2017 FINDINGS: Cardiac silhouette is enlarged, unchanged compared to prior exam. This could be secondary to cardiomegaly. There is no focal parenchymal or pleural disease. There is no acute osseous process visualized. IMPRESSION: Stable examination. No evidence of acute cardiopulmonary disease. Electronically signed by: Eric Chowdhury MD 06/02/2018 7:31 PM CORRECTIONAL COUNSELOR/CASE MANAGER
[2018-06-02] MEDS ORDERED: methylPREDNISolone SODIUM SUC 125 MG/2 ML VIAL IV ONE (19:58)
[2018-06-02] MEDS ORDERED: SODIUM CHL 0.9% 50ML VIAL 3 ML, ALBUTEROL SULFATE NEBS 15 MG NEB ONE ×2 (19:59)
[2018-06-02] MEDS ORDERED: SODIUM CHLORIDE 0.9% 50 ML VIAL ONE ×2 (20:03→20:05)
[2018-06-02] MEDS ORDERED: ALBUTEROL SULFATE 2.5 MG/3 ML VIAL NEB ONE ×8 (20:04→20:08)
[2018-06-02] MEDS ORDERED: HYDROcodone 7.5MG/APAP 325MG 1 EA TAB PO ONE (22:30)
[2018-06-02 23:00] VITALS: BP 137/91; TEMP 98; O2SAT 93
== END 2018-06-02 23:00 | disposition home or self-care (01) ==
LOC: ER 18:32
DX: J44.1 Chronic obstructive pulmonary disease with (acute) exacerbation (principal); E11.9 Type 2 diabetes mellitus without complications; I11.0 Hypertensive heart disease with heart failure; E07.9 Disorder of thyroid, unspecified; I50.9 Heart failure, unspecified; I48.91 Unspecified atrial fibrillation; Z87.891 Personal history of nicotine dependence; Z79.84 Long term (current) use of oral hypoglycemic drugs; Z79.899 Other long term (current) drug therapy; Z88.8 Allergy status to other drugs, medicaments and biological substances
CPT/HCPCS: 36415; 71045; 80053; 85025; 94640; 94644; A4216; J2930; J7030; J7611; J7620

== ENCOUNTER → 2018-11-14 | Outpatient (CLI) | payer OTHER ==
--- NOTE | 2018-11-14 13:41 | RAD ---
EXAM DESCRIPTION: Shoulder,Right 2 or More Views CLINICAL HISTORY: PAIN IN RIGHT SHOULDER COMPARISON: None Available. TECHNIQUE: Two views of the right shoulder. FINDINGS: There is adequate internal and external rotation. There is no fracture or dislocation. Degenerative changes in the right AC joint with mild inferior spurring. No focal bone lesion. IMPRESSION: Negative for fracture or dislocation. Electronically signed by: Maximus Gentile MD 11/14/2018 1:39 PM CDT
== END ==
LOC: LAB.O 12:41
PROVIDERS: ATTEND Emergency Medicine
DX: M25.511 Pain in right shoulder (principal); J44.9 Chronic obstructive pulmonary disease, unspecified

== ENCOUNTER 2018-11-29 20:20 | Emergency (ER) | payer OTHER ==
[2018-11-29 21:27] VITALS: TEMP 99.1; O2SAT 97
--- NOTE | 2018-11-29 21:57 | ED.PDOC ---
History of Present Illness - General Chief Complaint: Abdominal Pain Stated Complaint: abd pain, rectal bleeding, weakness Time Seen by Provider: 11/29/18 21:28 Source: patient Exam Limitations: no limitations - History of Present Illness Initial Comments: C/O RECTAL BLEEDING ONSET TODAY. JUST RELEASED FROM HOSPITAL TODAY FOR CHF. HAS A FIB IS IS CURRENTLY TAKING HIS BLOOD THINNERS. C/O PAIN WITH DEFECATION, BLOOD ON TOILET TISSUE WITH SMALL AMOUNT OF BLOOD IN TOILET (A COUPLE OF DROPS). HAD SAME EPISODE LATER. WAS FOLLOWED BY GENERALIZED WEAKNESS. Timing/Duration: other - TODAY. NONE WHILE HOSPITALIZED Improving Factors: nothing Worsening Factors: other - DEFECATION Allergies/Adverse Reactions: Allergies Tramadol Allergy (Verified 11/29/18 21:27) Home Medications: Ambulatory Orders Potassium Chloride Microencaps [Klor-Con M20] 20 meq PO BID 11/24/15 HYDROcodone 10MG/APAP 325MG [[place] 10/325] 1 ea PO TID 06/26/17 Apixaban [Eliquis] 5 mg PO BID #60 tab 07/22/17 Celecoxib 200 mg PO BID #60 cap 07/22/17 Citalopram Hydrobromide 20 mg PO BID #60 tab 07/22/17 Diltiazem HCl Coated Beads [Cartia Xt] 240 mg PO BID #60 cap 07/22/17 Fluticasone Furoate-Vilanterol [Breo Ellipta 100-25 Mcg/INH] 1 inh IN DAILY #1 inh 07/22/17 Furosemide 40 mg PO DAILY #30 tab 07/22/17 Levothyroxine Sodium 50 mcg PO DAILY #30 tab 07/22/17 Umeclidinium [place] [Incruse Ellipta] 62.5 mcg IN DAILY #1 inh 07/22/17 metFORMIN HCL [Glucophage] 500 mg PO BID #60 tab 07/22/17 Albuterol Sulfate Nebs [Proventil Nebs] 2.5 mg INH 07/24/18 Aspirin [Aspirin Childrens] 81 mg PO 07/24/18 Calcipotriene [Dovonex] 07/24/18 Clobetasol Propionate Emulsion [Clobetasol Propionate] 07/24/18 Liraglutide [Victoza] 18 mg SC 07/24/18 Spironolactone 25 mg PO 07/24/18 Lisinopril 40 mg PO BID 07/25/18 metFORMIN XR [Glucophage Xr] 1,000 mg PO BID 07/26/18 Cefdinir [Omnicef] 300 mg PO BID #16 cap 07/27/18 Doxycycline Hyclate 100 mg PO BID #16 tab 07/27/18 Prednisone See Taper PO DAILY #30 tab 07/27/18 Promethazine W/Codeine Syr [Phenergan With Codeine Syrup] 5 ml PO Q4H PRN #4 oz 07/27/18 Hydrocort 2.5% Crm (Anusol Hc) [Anusol-HC Cream] 2.5 % SC TID #1 tube 11/30/18 Review of Systems - Review of Systems Constitutional: States: weakness. Denies: chills, fever EENTM: States: other - NO MM BLEEDING. Denies: no symptoms reported Respiratory: Denies: cough, short of breath Cardiology: Denies: chest pain, palpitations Gastrointestinal/Abdominal: Denies: abdominal pain, diarrhea, nausea, vomiting Genitourinary: States: no symptoms reported Musculoskeletal: States: no symptoms reported Skin: States: other - PSORIASIS Neurological: States: no symptoms reported Endocrine: States: no symptoms reported Hematologic/Lymphatic: States: no symptoms reported. Denies: blood clots, easy bleeding, easy bruising Past Medical History (General) - Patient Medical History Hx Seizures: No Hx Stroke: No Hx Dementia: No Hx Asthma: Yes Hx of COPD: Yes Hx Cardiac Disorders: Yes - Afib Hx Congestive Heart Failure: Yes Hx Pacemaker: No Hx Hypertension: Yes Hx Thyroid Disease: Yes Hx Diabetes: Yes Hx Gastroesophageal Reflux: No Hx Renal Disease: No Hx Cancer: No Hx of HIV: No Hx Hepatitis C: No Hx MRSA: Yes MRSA Source:: Wound Surgical History: no surgical history - Vaccination History Hx Tetanus, Diphtheria Vaccination: Yes Hx Influenza Vaccination: Yes Hx Pneumococcal Vaccination: Yes - Social History Hx Tobacco Use: Yes Hx Alcohol Use: Yes - stopped alcohol 20 years ago Hx Substance Use: No Hx Physical Abuse: No Hx Emotional Abuse: No Family Medical History - Family History Father Family History: Unknown Living Status: Cause of : [place] Hx Family Asthma: Yes - multiple family members Hx Family Stroke: Yes Hx Cardiac Disease: Yes - dad/brothers Hx Family Cancer: Yes - mom-breast() Mother Family History: Unknown Living Status: Cause of : Breast CA Physical Exam - Physical Exam General Appearance: Alert, No apparent distress, Other - MORBIDLY OBESES Eye Exam: bilateral normal Ears, Nose, Throat: hearing grossly normal, normal ENT inspection Neck: non-tender, full range of motion, supple Respiratory: lungs clear, normal breath sounds, no respiratory distress Cardiovascular/Chest: no gallop, no murmur, tachycardia, irregularly irregular Gastrointestinal/Abdominal: normal bowel sounds, non tender, soft, no organomegaly Rectal Exam: other - PERIANAL PSORIASIS WITH EXCORIATION, TTP, AND SMALL AMOUNT OF BLEEDING. SMALL AMOUNT OF BROWN STOOL. NO MASSES, NL PROSTATE. Back Exam: normal inspection, no CVA tenderness, no vertebral tenderness Extremity: normal range of motion, non-tender Neurologic: no motor/sensory deficits, alert, normal mood/affect Skin Exam: other - MULTIPLE PSORIATIC PLAQUES. Lymphatic: no adenopathy Progress - Progress Progress: 11/30/18 00:46 FEELS AT BASELINE, ACUTE ON CHRONIC KIDNEY INJURY BUT PT WAS JUST DIURESED HEAVILY. ELECTROLYTES NL. Departure - Departure Clinical Impression: Psoriasis, Anal fissure [id number] kidney injury Qualifiers: Acute renal failure type: unspecified Chronic kidney disease stage: unspecified stage Qualified Code(s): N17.9 - Acute kidney failure, unspecified; N18.9 - Chronic kidney disease, unspecified Time of Disposition: 00:48 Disposition: Discharge to Home or Self Care Condition: Fair Departure Forms: ED Discharge - Pt. Copy, Patient Portal Self Enrollment Instructions: Anal Fissure (DC), Psoriasis Referrals: JOSY STAHL [Primary Care Provider] - 1-2 Weeks Prescriptions: Hydrocort 2.5% Crm (Anusol Hc) [Anusol-HC Cream] 2.5 % SC TID #1 tube Home Medications: Ambulatory Orders Potassium Chloride Microencaps [Klor-Con M20] 20 meq PO BID 11/24/15 HYDROcodone 10MG/APAP 325MG [[place] 10/325] 1 ea PO TID 06/26/17 Apixaban [Eliquis] 5 mg PO BID #60 tab 07/22/17 Celecoxib 200 mg PO BID #60 cap 07/22/17 Citalopram Hydrobromide 20 mg PO BID #60 tab 07/22/17 Diltiazem HCl Coated Beads [Cartia Xt] 240 mg PO BID #60 cap 07/22/17 Fluticasone Furoate-Vilanterol [Breo Ellipta 100-25 Mcg/INH] 1 inh IN DAILY #1 inh 07/22/17 Furosemide 40 mg PO DAILY #30 tab 07/22/17 Levothyroxine Sodium 50 mcg PO DAILY #30 tab 07/22/17 Umeclidinium [place] [Incruse Ellipta] 62.5 mcg IN DAILY #1 inh 07/22/17 metFORMIN HCL [Glucophage] 500 mg PO BID #60 tab 07/22/17 Albuterol Sulfate Nebs [Proventil Nebs] 2.5 mg INH 07/24/18 Aspirin [Aspirin Childrens] 81 mg PO 07/24/18 Calcipotriene [Dovonex] 07/24/18 Clobetasol Propionate Emulsion [Clobetasol Propionate] 07/24/18 Liraglutide [Victoza] 18 mg SC 07/24/18 Spironolactone 25 mg PO 07/24/18 Lisinopril 40 mg PO BID 07/25/18 metFORMIN XR [Glucophage Xr] 1,000 mg PO BID 07/26/18 Cefdinir [Omnicef] 300 mg PO BID #16 cap 07/27/18 Doxycycline Hyclate 100 mg PO BID #16 tab 07/27/18 Prednisone See Taper PO DAILY #30 tab 07/27/18 Promethazine W/Codeine Syr [Phenergan With Codeine Syrup] 5 ml PO Q4H PRN #4 oz 07/27/18 Hydrocort 2.5% Crm (Anusol Hc) [Anusol-HC Cream] 2.5 % SC TID #1 tube 11/30/18
[2018-11-30 01:07] VITALS: BP 139/79
== END 2018-11-30 01:00 | disposition home or self-care (01) ==
LOC: ER 20:20
DX: K60.2 Anal fissure, unspecified (principal); L40.9 Psoriasis, unspecified; N17.9 Acute kidney failure, unspecified; N18.9 Chronic kidney disease, unspecified; I48.91 Unspecified atrial fibrillation; I50.9 Heart failure, unspecified; E11.22 Type 2 diabetes mellitus with diabetic chronic kidney disease; I13.0 Hypertensive heart and chronic kidney disease with heart failure and stage 1 through stage 4 chronic kidney disease, or unspecified chronic kidney disease; E07.9 Disorder of thyroid, unspecified; J44.9 Chronic obstructive pulmonary disease, unspecified; Z87.891 Personal history of nicotine dependence; Z79.899 Other long term (current) drug therapy; Z79.84 Long term (current) use of oral hypoglycemic drugs; Z79.82 Long term (current) use of aspirin; Z79.01 Long term (current) use of anticoagulants; Z88.5 Allergy status to narcotic agent

== ENCOUNTER 2018-12-04 11:01 | Emergency (ER) | payer OTHER ==
--- NOTE | 2018-12-04 11:50 | ED.PDOC ---
History of Present Illness - General Chief Complaint: Skin/Abrasion/Tear Time Seen by Provider: 12/04/18 11:47 Source: patient, RN notes reviewed Additional Information: 48 YEAR OLD WITH KNOWN HISTORY OF ATRIAL FIBRILLATION CHF CHRONIC KIDNEY DISEASE PRESENTS WITH PAINFUL SWELLING OVER THE LEFT LOWER ABDOMINAL WALL PROGRESSIVELY WORSENING OVER THE PAST FEW DAYS PHYSCAL EXAM THERE APPEARS TO BE A LARGE ABSCESS ON TH ELFT LOWER QUADRANT OF THE ABDOMEN 9X 8 CM TENDER WITH A CENTRAL NECROTIC AREA NO OBVIOUS DRAINAGE AT THIS TIME - History of Present Illness Timing/Duration: 1 week Severity: moderate Improving Factors: nothing Worsening Factors: nothing Associated Symptoms: denies symptoms Allergies/Adverse Reactions: Allergies Tramadol Allergy (Verified 11/29/18 21:27) Home Medications: Ambulatory Orders Potassium Chloride Microencaps [Klor-Con M20] 20 meq PO BID 11/24/15 HYDROcodone 10MG/APAP 325MG [[place] 10/325] 1 ea PO TID 06/26/17 Apixaban [Eliquis] 5 mg PO BID #60 tab 07/22/17 Celecoxib 200 mg PO BID #60 cap 07/22/17 Citalopram Hydrobromide 20 mg PO BID #60 tab 07/22/17 Diltiazem HCl Coated Beads [Cartia Xt] 240 mg PO BID #60 cap 07/22/17 Fluticasone Furoate-Vilanterol [Breo Ellipta 100-25 Mcg/INH] 1 inh IN DAILY #1 inh 07/22/17 Furosemide 40 mg PO DAILY #30 tab 07/22/17 Levothyroxine Sodium 50 mcg PO DAILY #30 tab 07/22/17 Umeclidinium [place] [Incruse Ellipta] 62.5 mcg IN DAILY #1 inh 07/22/17 metFORMIN HCL [Glucophage] 500 mg PO BID #60 tab 07/22/17 Albuterol Sulfate Nebs [Proventil Nebs] 2.5 mg INH 07/24/18 Aspirin [Aspirin Childrens] 81 mg PO 07/24/18 Calcipotriene [Dovonex] 07/24/18 Clobetasol Propionate Emulsion [Clobetasol Propionate] 07/24/18 Liraglutide [Victoza] 18 mg SC 07/24/18 Spironolactone 25 mg PO 07/24/18 Lisinopril 40 mg PO BID 07/25/18 metFORMIN XR [Glucophage Xr] 1,000 mg PO BID 07/26/18 Cefdinir [Omnicef] 300 mg PO BID #16 cap 07/27/18 Doxycycline Hyclate 100 mg PO BID #16 tab 07/27/18 Prednisone See Taper PO DAILY #30 tab 07/27/18 Promethazine W/Codeine Syr [Phenergan With Codeine Syrup] 5 ml PO Q4H PRN #4 oz 07/27/18 Hydrocort 2.5% Crm (Anusol Hc) [Anusol-HC Cream] 2.5 % MO TID #1 tube 11/30/18 Acetamin W/Cod #3 Tab [Tylenol w/CODEINE #3] 1 ea PO Q6HR PRN #40 tab 12/04/18 Sulfa/Trimeth 800/160 (Ds) Tab [Bactrim DS Tab] 1 ea PO Q12HR #20 tab 12/04/18 Review of Systems - Review of Systems Constitutional: States: no symptoms reported EENTM: States: no symptoms reported Respiratory: States: no symptoms reported Cardiology: States: no symptoms reported Gastrointestinal/Abdominal: States: see HPI Genitourinary: States: no symptoms reported Musculoskeletal: States: no symptoms reported Skin: States: no symptoms reported Neurological: States: no symptoms reported Endocrine: States: no symptoms reported Hematologic/Lymphatic: States: no symptoms reported Past Medical History (General) - Patient Medical History Hx Seizures: No Hx Stroke: No Hx Dementia: No Hx Asthma: Yes Hx of COPD: Yes Hx Cardiac Disorders: Yes - Afib Hx Congestive Heart Failure: Yes Hx Pacemaker: No Hx Hypertension: Yes Hx Thyroid Disease: Yes Hx Diabetes: Yes Hx Gastroesophageal Reflux: No Hx Renal Disease: No Hx Cancer: No Hx of HIV: No Hx Hepatitis C: No Hx MRSA: Yes MRSA Source:: Wound - Vaccination History Hx Tetanus, Diphtheria Vaccination: Yes Hx Influenza Vaccination: Yes Hx Pneumococcal Vaccination: Yes - Social History Hx Tobacco Use: Yes Hx Alcohol Use: Yes - stopped alcohol 20 years ago Hx Substance Use: No Hx Physical Abuse: No Hx Emotional Abuse: No Family Medical History - Family History Father Family History: Unknown Living Status: Cause of : [place] Hx Family Asthma: Yes - multiple family members Hx Family Stroke: Yes Hx Cardiac Disease: Yes - dad/brothers Hx Family Cancer: Yes - mom-breast() Mother Family History: Unknown Living Status: Cause of : Breast CA Physical Exam - Physical Exam General Appearance: Alert, Comfortable Ears, Nose, Throat: hearing grossly normal, normal ENT inspection, normal pharynx Neck: non-tender, full range of motion, supple Respiratory: chest non-tender, lungs clear, normal breath sounds, no respiratory distress, no accessory muscle use, respiratory distress Cardiovascular/Chest: normal peripheral pulses, regular rate, rhythm, no edema, no gallop, no JVD Gastrointestinal/Abdominal: normal bowel sounds, non tender, soft, other - LEFT LOWER QUADRANT ABSCESS DISCRIPTION IN HPI Back Exam: normal inspection, no CVA tenderness Progress - Results/Orders Results/Orders: Laboratory Tests 12/04/18 12/04/18 11:56 11:56 WBC 11.5 H RBC 5.72 Hgb 16.1 Hct 49.3 MCV 86.2 MCH 28.1 MCHC 32.6 L RDW 15.8 H Plt Count 261 MPV 9.1 Absolute Neuts (auto) 8.40 H Absolute Lymphs (auto) 1.30 Absolute Monos (auto) 1.20 H Absolute Eos (auto) 0.40 Absolute Basos (auto) 0.10 Neutrophils % 73.2 Lymphocytes % 11.5 L Monocytes % 10.9 H Eosinophils % 3.3 Basophils % 1.1 Sodium 135 Potassium 3.5 L Chloride 96 L Carbon Dioxide 28 Anion Gap 14.5 BUN 30 H Creatinine 1.77 H BUN/Creatinine Ratio 16.9 Random Glucose 120 H Serum Osmolality 277.5 Calcium 9.1 Total Bilirubin 1.3 H AST 24 ALT 30 Alkaline Phosphatase 55 Serum Total Protein 7.5 Albumin 3.9 Globulin 3.6 H Albumin/Globulin Ratio 1.1 12.40 PATIENT ADVISED TO FOLLOW UP WITH PCP TO REMOVE THE GAUZE PACKING IN 2 DAYS RETURN HERE TO ER FOR PAIN FEVER CHILLS Procedures - Incision and Drainage #1 Procedure and Prep: betadine prep, sterile drapes applied, sterile dressings applied, gauze wick placed, irrigated Blade Size: 11 Procedure Comments: LARGE ABSCESS LEFT LOWER ANTERIOR ABDOMINAL WALL. LOCAL 1 PERCENT LIDOCAINE. USING A 11 BLADE A HORZONTAL INCISION MADE AND 20-30 CC PURULANT MATERIAL DRAINED. PACKED WITH 1/2 INCH IODOFORM GAUZE AND DRESSING APPLIED NO ACTIVE BLEEDING NOTED AFTR THE PROCEDURE Departure - Departure Clinical Impression: Left lower quadrant abdominal abscess Time of Disposition: 12:55 Disposition: Discharge to Home or Self Care Condition: Good Departure Forms: ED Discharge - Pt. Copy, Patient Portal Self Enrollment Instructions: DI for Abrasion Referrals: JOSY STAHL [Primary Care Provider] - 1-2 Weeks Prescriptions: Acetamin W/Cod #3 Tab [Tylenol w/CODEINE #3] 1 ea PO Q6HR PRN #40 tab PRN Reason: Mild To Moderate Pain Sulfa/Trimeth 800/160 (Ds) Tab [Bactrim DS Tab] 1 ea PO Q12HR #20 tab Home Medications: Ambulatory Orders Potassium Chloride Microencaps [Klor-Con M20] 20 meq PO BID 11/24/15 HYDROcodone 10MG/APAP 325MG [[place] 10/325] 1 ea PO TID 06/26/17 Apixaban [Eliquis] 5 mg PO BID #60 tab 07/22/17 Celecoxib 200 mg PO BID #60 cap 07/22/17 Citalopram Hydrobromide 20 mg PO BID #60 tab 07/22/17 Diltiazem HCl Coated Beads [Cartia Xt] 240 mg PO BID #60 cap 07/22/17 Fluticasone Furoate-Vilanterol [Breo Ellipta 100-25 Mcg/INH] 1 inh IN DAILY #1 inh 07/22/17 Furosemide 40 mg PO DAILY #30 tab 07/22/17 Levothyroxine Sodium 50 mcg PO DAILY #30 tab 07/22/17 Umeclidinium [place] [Incruse Ellipta] 62.5 mcg IN DAILY #1 inh 07/22/17 metFORMIN HCL [Glucophage] 500 mg PO BID #60 tab 07/22/17 Albuterol Sulfate Nebs [Proventil Nebs] 2.5 mg INH 07/24/18 Aspirin [Aspirin Childrens] 81 mg PO 07/24/18 Calcipotriene [Dovonex] 07/24/18 Clobetasol Propionate Emulsion [Clobetasol Propionate] 07/24/18 Liraglutide [Victoza] 18 mg SC 07/24/18 Spironolactone 25 mg PO 07/24/18 Lisinopril 40 mg PO BID 07/25/18 metFORMIN XR [Glucophage Xr] 1,000 mg PO BID 07/26/18 Cefdinir [Omnicef] 300 mg PO BID #16 cap 07/27/18 Doxycycline Hyclate 100 mg PO BID #16 tab 07/27/18 Prednisone See Taper PO DAILY #30 tab 07/27/18 Promethazine W/Codeine Syr [Phenergan With Codeine Syrup] 5 ml PO Q4H PRN #4 oz 07/27/18 Hydrocort 2.5% Crm (Anusol Hc) [Anusol-HC Cream] 2.5 % MO TID #1 tube 11/30/18 Acetamin W/Cod #3 Tab [Tylenol w/CODEINE #3] 1 ea PO Q6HR PRN #40 tab 12/04/18 Sulfa/Trimeth 800/160 (Ds) Tab [Bactrim DS Tab] 1 ea PO Q12HR #20 tab 12/04/18
[2018-12-04] MEDS ORDERED: fentaNYL CITRATE INJ 50 MCG/ML AMP IV ONE (11:54)
[2018-12-04] MEDS ORDERED: ONDANSETRON INJ 4 MG/2 ML VIAL IV ONE (11:56)
[2018-12-04 11:57] VITALS: TEMP 98.8
[2018-12-04] MEDS ORDERED: LIDOCAINE 1% 10 ML VIAL INJ ONE (12:14)
[2018-12-04] MEDS ORDERED: IODOFORM 1/4 INCH 1 EA BTTL TOP ONE (12:15)
[2018-12-04] MEDS ORDERED: CHLORHEXIDINE GLUCONATE 4 % 15 ML UD TOP ONE (12:17)
[2018-12-04 12:37] VITALS: BP 125/82; O2SAT 95
== END 2018-12-04 13:15 | disposition home or self-care (01) ==
LOC: ER 11:01
DX: L02.211 Cutaneous abscess of abdominal wall (principal); J44.9 Chronic obstructive pulmonary disease, unspecified; I48.91 Unspecified atrial fibrillation; I50.9 Heart failure, unspecified; I11.0 Hypertensive heart disease with heart failure; E07.9 Disorder of thyroid, unspecified; E11.9 Type 2 diabetes mellitus without complications; Z87.891 Personal history of nicotine dependence; Z79.84 Long term (current) use of oral hypoglycemic drugs; Z79.899 Other long term (current) drug therapy; Z79.82 Long term (current) use of aspirin; Z79.01 Long term (current) use of anticoagulants; Z88.5 Allergy status to narcotic agent
CPT/HCPCS: 36415; 80053; 85025; J2405; J3010

== ENCOUNTER 2018-12-20 14:48 | Emergency (ER) | payer OTHER ==
--- NOTE | 2018-12-20 15:46 | RAD ---
PROVIDED CLINICAL HISTORY/REASON FOR EXAM: dizzineess, myalgia, Findings: Number of images: Three Location: Frontal and lateral chest radiographs Stable cardiomegaly. No pulmonary vascular congestion. No focal consolidation. No suspicious pulmonary nodule. No acute osseous abnormality. Soft tissues are unremarkable. IMPRESSION: Stable cardiomegaly. No pulmonary vascular congestion. Electronically signed by: Kirby Solomon MD 12/20/2018 3:44 PM CDT
--- NOTE | 2018-12-20 16:35 | ED.PDOC ---
History of Present Illness - General Chief Complaint: General Stated Complaint: dizziness,tingling on right side,muscle fatigue Time Seen by Provider: 12/20/18 14:52 Source: patient Exam Limitations: no limitations - History of Present Illness Initial Comments: the patient is a 48-year-old male presenting to emergency room secondary to feeling dizzy with some right-sided tingling starting a little bit after noon today. No focal neurological deficits. No syncope. He has had episodes of palpitations. He was recently taken off of Cardizem at [facility] [place]. Heart rates here to do go up into the 140s with standing. Blood pressures are fairly low with a systolic around 100. He does take 3 forms of a diuretic. He takes several blood pressure medications. No chest pain. he does have known atrial fibrillation. Timing/Duration: 1-3 hours Severity: mild Improving Factors: nothing Worsening Factors: nothing Associated Symptoms: malaise Allergies/Adverse Reactions: Allergies Tramadol Allergy (Verified 11/29/18 21:27) Home Medications: Ambulatory Orders Potassium Chloride Microencaps [Klor-Con M20] 20 meq PO BID 11/24/15 HYDROcodone 10MG/APAP 325MG [[place] 10/325] 1 ea PO TID 06/26/17 Apixaban [Eliquis] 5 mg PO BID #60 tab 07/22/17 Celecoxib 200 mg PO BID #60 cap 07/22/17 Citalopram Hydrobromide 20 mg PO BID #60 tab 07/22/17 Levothyroxine Sodium 50 mcg PO DAILY #30 tab 07/22/17 Umeclidinium [place] [Incruse Ellipta] 62.5 mcg IN DAILY #1 inh 07/22/17 metFORMIN HCL [Glucophage] 500 mg PO BID #60 tab 07/22/17 Albuterol Sulfate Nebs [Proventil Nebs] 2.5 mg INH 07/24/18 Aspirin [Aspirin Childrens] 81 mg PO DAILY 07/24/18 Calcipotriene [Dovonex] 1 applic TOP BID 07/24/18 Clobetasol Propionate Emulsion [Clobetasol Propionate] 1 applic TOP BID 07/24/18 Liraglutide [Victoza] 18 mg SC DAILY 07/24/18 Spironolactone 25 mg PO DAILY 07/24/18 Lisinopril 40 mg PO BID 07/25/18 Atorvastatin Calcium 40 mg PO BEDTIME 12/20/18 Bumetanide 2 mg PO BID 12/20/18 Carvedilol 3.125 mg PO BID 12/20/18 Fluticasone Furoate-Vilanterol [Breo Ellipta] 1 inh IN DAILY 12/20/18 Metolazone 2.5 mg PO DAILY 12/20/18 Sulfa/Trimeth 800/160 (Ds) Tab [Bactrim DS] 1 tablet PO BID 12/20/18 Triamcinolone 0.5% Cream [Kenalog 0.5% Cream] 1 applic TOP BID 12/20/18 Review of Systems - Review of Systems Constitutional: States: malaise EENTM: States: no symptoms reported Respiratory: States: short of breath - very mild Cardiology: States: palpitations Gastrointestinal/Abdominal: States: no symptoms reported Genitourinary: States: no symptoms reported Musculoskeletal: States: no symptoms reported Skin: States: no symptoms reported Neurological: States: no symptoms reported Endocrine: States: no symptoms reported All other Systems: No Change from Baseline Past Medical History (General) - Patient Medical History Hx Seizures: No Hx Stroke: No Hx Dementia: No Hx Asthma: Yes Hx of COPD: Yes Hx Cardiac Disorders: Yes - Afib Hx Congestive Heart Failure: Yes Hx Pacemaker: No Hx Hypertension: Yes Hx Thyroid Disease: Yes Hx Diabetes: Yes Hx Gastroesophageal Reflux: No Hx Renal Disease: No Hx Cancer: No Hx of HIV: No Hx Hepatitis C: No Hx MRSA: Yes MRSA Source:: Wound - Vaccination History Hx Tetanus, Diphtheria Vaccination: Yes Hx Influenza Vaccination: Yes Hx Pneumococcal Vaccination: Yes - Social History Hx Tobacco Use: Yes Hx Alcohol Use: Yes - stopped alcohol 20 years ago Hx Substance Use: No Hx Physical Abuse: No Hx Emotional Abuse: No Family Medical History - Family History Father Family History: Unknown Living Status: Cause of : [place] Hx Family Asthma: Yes - multiple family members Hx Family Stroke: Yes Hx Cardiac Disease: Yes - dad/brothers Hx Family Cancer: Yes - mom-breast() Mother Family History: Unknown Living Status: Cause of : Breast CA Physical Exam - Physical Exam General Appearance: Alert, Anxious, No apparent distress Eye Exam: bilateral normal Ears, Nose, Throat: hearing grossly normal, normal ENT inspection, normal pharynx Neck: full range of motion, supple Respiratory: lungs clear, normal breath sounds, no respiratory distress, no accessory muscle use Cardiovascular/Chest: normal peripheral pulses, no edema, tachycardia, irregularly irregular Peripheral Pulses: radial,right: 2+, radial,left: 2+, dorsalis pedis,right: 2+, dorsalis pedis,left: 2+ Gastrointestinal/Abdominal: non tender - morbidly obese, soft Rectal Exam: deferred Back Exam: no CVA tenderness, no vertebral tenderness Extremity: non-tender, normal inspection, no pedal edema, normal capillary refill 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 The patient is to hold his diuretics in the forms of Bumex, spironolactone and metolazone for 2 days and then resume them with the Bumex down to only once daily. He needs to increase his fluid intake just for the next 2 days. He does have some acute renal insufficiency related to this and this does need to be followed with his primary care doctor. he needs to increase his carvedilol to 6.25 mg by mouth twice daily and he needs to reduce his lisinopril down to 40 mg once daily. This should help reduce the palpitations and allow for a little higher blood pressure for functioning. The lower dose lisinopril is appropriate in light of the acute renal insufficiency. He needs to follow-up with his primary care doctor early next week for repeat evaluation of these issues. Creatinine was 3.2 today. ER warnings are given for any acute worsening. 12/20/18 16:38 - Results/Orders Results/Orders: Laboratory Tests 12/20/18 12/20/18 12/20/18 15:20 15:20 15:20 WBC 10.9 H RBC 5.89 Hgb 16.8 Hct 50.9 MCV 86.4 MCH 28.5 MCHC 33.0 RDW 16.2 H Plt Count 332 MPV 8.4 Absolute Neuts (auto) 7.70 H Absolute Lymphs (auto) 1.70 Absolute Monos (auto) 0.80 Absolute Eos (auto) 0.50 H Absolute Basos (auto) 0.10 Neutrophils % 70.9 Lymphocytes % 15.5 L Monocytes % 7.8 Eosinophils % 4.7 Basophils % 1.1 PT 11.7 H INR 1.17 H PTT (SP) 27.9 Sodium 138 Potassium 4.5 Chloride 98 L Carbon Dioxide 26 Anion Gap 18.5 H BUN 30 H Creatinine 3.16 H BUN/Creatinine Ratio 9.5 L Random Glucose 111 H Serum Osmolality 282.6 Lactic Acid Calcium 9.5 Magnesium 2.0 Total Bilirubin 0.9 AST 28 ALT 34 Alkaline Phosphatase 59 Creatine Kinase 368 H* CK-MB (CK-2) 2.2 CK-MB (CK-2) % Not Reportable Troponin I < 0.02 B-Natriuretic Peptide 7.7 Serum Total Protein 7.8 Albumin 4.3 Globulin 3.5 Albumin/Globulin Ratio 1.2 TSH 5.18 12/20/18 15:20 WBC RBC Hgb Hct MCV MCH MCHC RDW Plt Count MPV Absolute Neuts (auto) Absolute Lymphs (auto) Absolute Monos (auto) Absolute Eos (auto) Absolute Basos (auto) Neutrophils % Lymphocytes % Monocytes % Eosinophils % Basophils % PT INR PTT (SP) Sodium Potassium Chloride Carbon Dioxide Anion Gap BUN Creatinine BUN/Creatinine Ratio Random Glucose Serum Osmolality Lactic Acid 1.5 Calcium Magnesium Total Bilirubin AST ALT Alkaline Phosphatase Creatine Kinase CK-MB (CK-2) CK-MB (CK-2) % Troponin I B-Natriuretic Peptide Serum Total Protein Albumin Globulin Albumin/Globulin Ratio TSH chest x-ray shows stable cardiomegaly. No overt fluid overload. EKG shows A. fib with RVR. Borderline axis. Borderline R-wave progression. No definitive ST segment or T-wave changes indicative of ischemia. Borderline QT interval corrected. Departure - Departure Clinical Impression: Dehydration, Atrial fibrillation with RVR Acute renal failure Qualifiers: Acute renal failure type: unspecified Qualified Code(s): N17.9 - Acute kidney failure, unspecified Disposition: Discharge to Home or Self Care Condition: Fair Departure Forms: ED Discharge - Pt. Copy, Patient Portal Self Enrollment Instructions: Dehydration, Adult (DC) Diet: diabetic diet Activity: increase activity as tolerated - Avoid overheating Referrals: JOSY STAHL [Primary Care Provider] - 1-2 Weeks Home Medications: Ambulatory Orders Potassium Chloride Microencaps [Klor-Con M20] 20 meq PO BID 11/24/15 HYDROcodone 10MG/APAP 325MG [[place] 10/325] 1 ea PO TID 06/26/17 Apixaban [Eliquis] 5 mg PO BID #60 tab 07/22/17 Celecoxib 200 mg PO BID #60 cap 07/22/17 Citalopram Hydrobromide 20 mg PO BID #60 tab 07/22/17 Levothyroxine Sodium 50 mcg PO DAILY #30 tab 07/22/17 Umeclidinium [place] [Incruse Ellipta] 62.5 mcg IN DAILY #1 inh 07/22/17 metFORMIN HCL [Glucophage] 500 mg PO BID #60 tab 07/22/17 Albuterol Sulfate Nebs [Proventil Nebs] 2.5 mg INH 07/24/18 Aspirin [Aspirin Childrens] 81 mg PO DAILY 07/24/18 Calcipotriene [Dovonex] 1 applic TOP BID 07/24/18 Clobetasol Propionate Emulsion [Clobetasol Propionate] 1 applic TOP BID 07/24/18 Liraglutide [Victoza] 18 mg SC DAILY 07/24/18 Spironolactone 25 mg PO DAILY 07/24/18 Lisinopril 40 mg PO BID 07/25/18 Atorvastatin Calcium 40 mg PO BEDTIME 12/20/18 Bumetanide 2 mg PO BID 12/20/18 Carvedilol 3.125 mg PO BID 12/20/18 Fluticasone Furoate-Vilanterol [Breo Ellipta] 1 inh IN DAILY 12/20/18 Metolazone 2.5 mg PO DAILY 12/20/18 Sulfa/Trimeth 800/160 (Ds) Tab [Bactrim DS] 1 tablet PO BID 12/20/18 Triamcinolone 0.5% Cream [Kenalog 0.5% Cream] 1 applic TOP BID 12/20/18 Additional Instructions: the patient is 48-year-old male presenting to the emergency room secondary to symptoms starting this afternoon that are most likely due to dehydration and its associated problems of a low blood pressure and reactive tachycardia in light of his atrial fibrillation. The patient is to hold his diuretics in the forms of Bumex, spironolactone and metolazone for 2 days and then resume them with the Bumex down to only once daily. He needs to increase his fluid intake just for the next 2 days. He does have some acute renal insufficiency related to this and this does need to be followed with his primary care doctor. he needs to increase his carvedilol to 6.25 mg by mouth twice daily and he needs to reduce his lisinopril down to 40 mg once daily. This should help reduce the palpitations and allow for a little higher blood pressure for functioning. The lower dose lisinopril is appropriate in light of the acute renal insufficiency. He needs to follow-up with his primary care doctor early next week for repeat evaluation of these issues. Creatinine was 3.2 today. ER warnings are given for any acute worsening.
[2018-12-20 17:14] VITALS: BP 105/68; TEMP 97.3; O2SAT 95
== END 2018-12-20 17:14 | disposition home or self-care (01) ==
LOC: ER 14:48
DX: E86.0 Dehydration (principal); I48.91 Unspecified atrial fibrillation; R00.0 Tachycardia, unspecified; N17.9 Acute kidney failure, unspecified; J44.9 Chronic obstructive pulmonary disease, unspecified; I50.9 Heart failure, unspecified; I11.0 Hypertensive heart disease with heart failure; E07.9 Disorder of thyroid, unspecified; E11.9 Type 2 diabetes mellitus without complications; Z87.891 Personal history of nicotine dependence; Z79.84 Long term (current) use of oral hypoglycemic drugs; Z79.82 Long term (current) use of aspirin; Z79.899 Other long term (current) drug therapy; Z88.5 Allergy status to narcotic agent

== ENCOUNTER 2019-01-26 19:43 | Emergency (ER) | payer OTHER ==
--- NOTE | 2019-01-26 19:55 | ED.PDOC ---
History of Present Illness - General Chief Complaint: General Stated Complaint: lethargic/low back pain Time Seen by Provider: 01/26/19 19:48 Source: patient, EMS Exam Limitations: no limitations - History of Present Illness Initial Comments: Alin Brandon 48 y/o male brought by EMS after they were called by the patient friend that he was noted to be weak and lethargic today..On ems arrival he was found sitting on his couch and was lifted on the gurney.Had FSBS-105 mg /dl.Patient stated that he had one episode of N/V at home and watery diarrhea afterwards but was able to eat lunch that was given by meals on wheels.Also mentioned about dull low back pain mostly on his right side to the EMS. Had intermittent dizzy spells for the last 3-4 weeks. Timing/Duration: 4-6 hours Severity: moderate Improving Factors: nothing Worsening Factors: nothing Associated Symptoms: weakness Allergies/Adverse Reactions: Allergies Tramadol Allergy (Verified 11/29/18 21:27) Home Medications: Ambulatory Orders Potassium Chloride Microencaps [Klor-Con M20] 20 meq PO BID 11/24/15 HYDROcodone 10MG/APAP 325MG [[place] 10/325] 1 ea PO TID 06/26/17 Apixaban [Eliquis] 5 mg PO BID #60 tab 07/22/17 Celecoxib 200 mg PO BID #60 cap 07/22/17 Citalopram Hydrobromide 20 mg PO BID #60 tab 07/22/17 Levothyroxine Sodium 50 mcg PO DAILY #30 tab 07/22/17 Umeclidinium [place] [Incruse Ellipta] 62.5 mcg IN DAILY #1 inh 07/22/17 metFORMIN HCL [Glucophage] 500 mg PO BID #60 tab 07/22/17 Albuterol Sulfate Nebs [Proventil Nebs] 2.5 mg INH 07/24/18 Aspirin [Aspirin Childrens] 81 mg PO DAILY 07/24/18 Calcipotriene [Dovonex] 1 applic TOP BID 07/24/18 Clobetasol Propionate Emulsion [Clobetasol Propionate] 1 applic TOP BID 07/24/18 Liraglutide [Victoza] 18 mg SC DAILY 07/24/18 Spironolactone 25 mg PO DAILY 07/24/18 Lisinopril 40 mg PO BID 07/25/18 Atorvastatin Calcium 40 mg PO BEDTIME 12/20/18 Bumetanide 2 mg PO BID 12/20/18 Carvedilol 3.125 mg PO BID 12/20/18 Fluticasone Furoate-Vilanterol [Breo Ellipta] 1 inh IN DAILY 12/20/18 Metolazone 2.5 mg PO DAILY 12/20/18 Triamcinolone 0.5% Cream [Kenalog 0.5% Cream] 1 applic TOP BID 12/20/18 Review of Systems - Review of Systems Constitutional: States: see HPI, weakness Neurological: States: see HPI, other - dizziness All other Systems: Reviewed and Negative, No Change from Baseline Past Medical History (General) - Patient Medical History Hx Seizures: No Hx Stroke: No Hx Dementia: No Hx Asthma: Yes Hx of COPD: Yes Hx Cardiac Disorders: Yes - Afib Hx Congestive Heart Failure: Yes Hx Pacemaker: No Hx Hypertension: Yes Hx Thyroid Disease: Yes Hx Diabetes: Yes Hx Gastroesophageal Reflux: No Hx Renal Disease: No Hx Cancer: No Hx of HIV: No Hx Hepatitis C: No Hx MRSA: Yes Hx Other PMH: Yes - Psoriasis;BETH MRSA Source:: Wound Surgical History: no surgical history - Vaccination History Hx Tetanus, Diphtheria Vaccination: Yes Hx Influenza Vaccination: Yes Hx Pneumococcal Vaccination: Yes - Social History Hx Tobacco Use: Yes Hx Alcohol Use: Yes - stopped alcohol 20 years ago Hx Substance Use: No Hx Physical Abuse: No Hx Emotional Abuse: No Family Medical History - Family History Father Family History: Unknown Living Status: Cause of : [place] Hx Family Asthma: Yes - multiple family members Hx Family Stroke: Yes Hx Cardiac Disease: Yes - dad/brothers Hx Family Cancer: Yes - mom-breast() Hx Family;Other: PSORIASIS-mom,brother Mother Family History: Unknown Living Status: Cause of : Breast CA Physical Exam - Physical Exam General Appearance: Comfortable, No apparent distress Eye Exam: bilateral normal Ears, Nose, Throat: hearing grossly normal, normal pharynx Neck: supple Respiratory: lungs clear, normal breath sounds, no respiratory distress Cardiovascular/Chest: no gallop, no JVD, no murmur, irregularly irregular Peripheral Pulses: radial,right: 2+, radial,left: 2+ Gastrointestinal/Abdominal: soft, other - obese Back Exam: no CVA tenderness, no vertebral tenderness Extremity: no pedal edema, no calf tenderness Neurologic: no motor/sensory deficits, oriented x 3 Skin Exam: warm/dry, other - plaque like skin lesion all over Lymphatic: no adenopathy Progress - Progress Progress: 01/26/19 20:54 Vital Signs - 8 hr 01/26/19 01/26/19 19:45 19:54 Temperature 98.4 F Pulse Rate [ 105 H Left Arm] Respiratory 18 16 Rate Blood Pressure 124/72 [Left Arm] O2 Sat by Pulse 99 Oximetry - Results/Orders Results/Orders: 01/26/19 19:56 Sodium Chloride 0.9% 500Ml [NS 500ml] 500 ml IVS .QD URINALYSIS Stat 01/26/19 20:08 URINE DRUG SCREEN, 7 ASSAY Stat 01/26/19 20:15 EKG STAT 01/26/19 21:32 TSH [THYROID STIMULATING HORMONE] Stat Laboratory Results - last 24 hr 01/26/19 01/26/19 01/26/19 20:10 20:17 20:17 WBC 12.9 H RBC 5.47 Hgb 15.8 Hct 47.7 MCV 87.2 MCH 28.8 MCHC 33.1 RDW 17.0 H Plt Count 249 MPV 8.4 Absolute Neuts (auto) 9.80 H Absolute Lymphs (auto) 1.40 Absolute Monos (auto) 1.00 H Absolute Eos (auto) 0.60 H Absolute Basos (auto) 0.10 Neutrophils % 76.1 Lymphocytes % 10.8 L Monocytes % 8.1 Eosinophils % 4.3 Basophils % 0.7 PT 11.0 H INR 1.10 PTT (SP) 27.0 Sodium 136 Potassium 3.7 Chloride 97 L Carbon Dioxide 26 Anion Gap 16.7 BUN 52 H Creatinine 3.42 H BUN/Creatinine Ratio 15.2 Random Glucose 115 H Serum Osmolality 286.9 Lactic Acid 1.8 Uric Acid Calcium 9.3 Magnesium 2.0 Total Bilirubin 0.7 Direct Bilirubin 0.1 Indirect Bilirubin 0.6 AST 25 ALT 28 Alkaline Phosphatase 56 Creatine Kinase 194 H CK-MB (CK-2) 1.3 CK-MB (CK-2) % Not Reportable Troponin I < 0.02 B-Natriuretic Peptide 6.7 Serum Total Protein 7.2 Albumin 4.1 01/26/19 20:51 WBC RBC Hgb Hct MCV MCH MCHC RDW Plt Count MPV Absolute Neuts (auto) Absolute Lymphs (auto) Absolute Monos (auto) Absolute Eos (auto) Absolute Basos (auto) Neutrophils % Lymphocytes % Monocytes % Eosinophils % Basophils % PT INR PTT (SP) Sodium Potassium Chloride Carbon Dioxide Anion Gap BUN Creatinine BUN/Creatinine Ratio Random Glucose Serum Osmolality Lactic Acid Uric Acid 14.2 H* Calcium Magnesium Total Bilirubin Direct Bilirubin Indirect Bilirubin AST ALT Alkaline Phosphatase Creatine Kinase CK-MB (CK-2) CK-MB (CK-2) % Troponin I B-Natriuretic Peptide Serum Total Protein Albumin Discuss test result with patient agreed to stay in hospital for OBS - EKG/XRAY/CT EKG: Atrial, Fibrillation, no ST T wave changes Comments: HR-97 XRAY: chest - no active cardiopulmonary disease Departure - Departure Clinical Impression: Malaise and fatigue, Dehydration, moderate, Pickwickian syndrome, Sleep apnea with use of continuous positive airway pressure (CPAP), History of chronic atrial fibrillation, Hyperuricemia, Diabetes 1.5, managed as type 1 [id number] renal failure Qualifiers: Acute renal failure type: unspecified Chronic kidney disease stage: stage 4 (severe) Qualified Code(s): N17.9 - Acute kidney failure, unspecified; N18.4 - Chronic kidney disease, stage 4 (severe) Time of Disposition: 21:59 Disposition: Admit Patient Condition: Fair Departure Forms: ED Discharge - Pt. Copy, Patient Portal Self Enrollment Referrals: JOSY STAHL [Primary Care Provider] - 1-2 Weeks Home Medications: Ambulatory Orders Potassium Chloride Microencaps [Klor-Con M20] 20 meq PO BID 11/24/15 HYDROcodone 10MG/APAP 325MG [[place] 10/325] 1 ea PO TID 06/26/17 Apixaban [Eliquis] 5 mg PO BID #60 tab 07/22/17 Celecoxib 200 mg PO BID #60 cap 07/22/17 Citalopram Hydrobromide 20 mg PO BID #60 tab 07/22/17 Levothyroxine Sodium 50 mcg PO DAILY #30 tab 07/22/17 Umeclidinium [place] [Incruse Ellipta] 62.5 mcg IN DAILY #1 inh 07/22/17 metFORMIN HCL [Glucophage] 500 mg PO BID #60 tab 07/22/17 Albuterol Sulfate Nebs [Proventil Nebs] 2.5 mg INH 07/24/18 Aspirin [Aspirin Childrens] 81 mg PO DAILY 07/24/18 Calcipotriene [Dovonex] 1 applic TOP BID 07/24/18 Clobetasol Propionate Emulsion [Clobetasol Propionate] 1 applic TOP BID 07/24/18 Liraglutide [Victoza] 18 mg SC DAILY 07/24/18 Spironolactone 25 mg PO DAILY 07/24/18 Lisinopril 40 mg PO BID 07/25/18 Atorvastatin Calcium 40 mg PO BEDTIME 12/20/18 Bumetanide 2 mg PO BID 12/20/18 Carvedilol 3.125 mg PO BID 12/20/18 Fluticasone Furoate-Vilanterol [Breo Ellipta] 1 inh IN DAILY 12/20/18 Metolazone 2.5 mg PO DAILY 12/20/18 Triamcinolone 0.5% Cream [Kenalog 0.5% Cream] 1 applic TOP BID 12/20/18 Decision To Admit - Decistion To Admit Decision to Admit Reason: Admit from ER Decision to Admit Date: 01/26/19 Decision to Admit Time: 21:56 - D/W Hunter Mancuso-ANETA/Hospitalist
[2019-01-26] MEDS ORDERED: SODIUM CHLORIDE 0.9% 500ML 500 ML IVS PRN (19:56)
--- NOTE | 2019-01-26 20:51 | RAD ---
EXAM: Chest,1 View CLINICAL INDICATION: Lethargy COMPARISON: 12/20/2018 FINDINGS: A single view of the chest was obtained. The heart size is normal. The pulmonary vascularity is unremarkable. The lungs are clear. There is no consolidation, infiltrate, pleural effusion, or pneumothorax. IMPRESSION: No evidence of active pulmonary disease. Electronically signed by: Bliar Mercedes MD 01/26/2019 8:49 PM CDT
[2019-01-26 23:27] VITALS: TEMP 98.1
[2019-01-26] MEDS ORDERED: SODIUM CHLORIDE 0.9% 1000ML 1,000 ML IVS PRN (23:35)
[2019-01-27 07:57] VITALS: BP 91/48; O2SAT 95
== END 2019-01-27 08:29 | disposition home or self-care (01) ==
LOC: ER 19:43
DX: N17.9 Acute kidney failure, unspecified (principal); N18.4 Chronic kidney disease, stage 4 (severe); R53.83 Other fatigue; R53.81 Other malaise; E86.0 Dehydration; E10.22 Type 1 diabetes mellitus with diabetic chronic kidney disease; E66.2 Morbid (severe) obesity with alveolar hypoventilation; I48.2 Chronic atrial fibrillation; E79.0 Hyperuricemia without signs of inflammatory arthritis and tophaceous disease; R42 Dizziness and giddiness; M54.5 Low back pain; R11.2 Nausea with vomiting, unspecified; R19.7 Diarrhea, unspecified; I50.9 Heart failure, unspecified; I13.0 Hypertensive heart and chronic kidney disease with heart failure and stage 1 through stage 4 chronic kidney disease, or unspecified chronic kidney disease; J44.9 Chronic obstructive pulmonary disease, unspecified; E07.9 Disorder of thyroid, unspecified; Z87.891 Personal history of nicotine dependence; Z79.899 Other long term (current) drug therapy; Z88.5 Allergy status to narcotic agent; Z79.82 Long term (current) use of aspirin; Z79.84 Long term (current) use of oral hypoglycemic drugs; Z79.01 Long term (current) use of anticoagulants
CPT/HCPCS: 36415; 71045; 80048; 80076; 82550; 82553; 83605; 83880; 84443; 84484; 84550; 85025; 85610; 85730; 93005; J7030; J7040

== ENCOUNTER 2019-02-01 19:08 | Emergency (ER) | payer OTHER ==
[2019-02-01 20:42] VITALS: BP 118/90
[2019-02-01 21:17] VITALS: TEMP 98; O2SAT 95
== END 2019-02-01 21:18 | disposition home or self-care (01) ==
LOC: ER 19:08
DX: S33.5XXA Sprain of ligaments of lumbar spine, initial encounter (principal); I50.9 Heart failure, unspecified; I11.0 Hypertensive heart disease with heart failure; E07.9 Disorder of thyroid, unspecified; E11.9 Type 2 diabetes mellitus without complications; I48.91 Unspecified atrial fibrillation; J44.9 Chronic obstructive pulmonary disease, unspecified; Z87.891 Personal history of nicotine dependence; Z79.82 Long term (current) use of aspirin; Z79.899 Other long term (current) drug therapy; Z79.84 Long term (current) use of oral hypoglycemic drugs; Z88.5 Allergy status to narcotic agent; W01.0XXA Fall on same level from slipping, tripping and stumbling without subsequent striking against object, initial encounter; Y92.009 Unspecified place in unspecified non-institutional (private) residence as the place of occurrence of the external cause
CPT/HCPCS: 72131; 72192; J1885

== ENCOUNTER → 2019-02-12 | Outpatient (CLI) | payer OTHER ==
--- NOTE | 2019-02-12 09:10 | RAD ---
PROVIDED CLINICAL HISTORY/REASON FOR EXAM: pain in right shoulder Findings: Number of images: 4 Location: Right shoulder No acute fracture or dislocation. Mild acromioclavicular osteoarthritis. Soft tissues are unremarkable. Subacromial space is maintained. Visualized chest is clear. Mild glenohumeral degenerative change. IMPRESSION: No evidence of acute process in the right shoulder. Electronically signed by: Kirby Solomon MD 02/12/2019 9:09 AM CDT
== END ==
LOC: RAD 08:15
PROVIDERS: ATTEND Orthopaedic Surgery
DX: M25.511 Pain in right shoulder (principal)

== ENCOUNTER → 2019-02-22 | Outpatient (CLI) | payer OTHER ==
--- NOTE | 2019-02-22 16:31 | MRI ---
MRI right shoulder without contrast INDICATION: Shoulder pain rotator cuff syndrome TECHNIQUE: Noncontrast MR imaging right shoulder FINDINGS: Moderate hypertrophic AC joint osteoarthrosis Up to grade 3-4 fatty and volumetric atrophy teres minor. Otherwise grade 1-2 marbling. Moderate subacromial and subdeltoid bursitis. Diffuse mild labral degeneration. Minimal glenohumeral osteophyte formation High-grade interstitial and bursal surface partial tear distal supraspinatus nearly full-thickness. Interstitial extension into the infraspinatus. Prominent bursitis Subscapularis is intact. No bicep rupture or dislocation. IMPRESSION: Prominent subacromial and subdeltoid bursitis High-grade interstitial and bursal surface partial tear distal supraspinatus nearly full-thickness with interstitial involvement of the infraspinatus to a lesser extent Moderate AC joint osteoarthrosis. Mild labral degeneration and mild glenohumeral osteoarthrosis Muscle atrophy most notable in the teres minor Electronically signed by: Braden Quintana MD 02/22/2019 4:29 PM CDT
== END ==
LOC: MRI 07:10
PROVIDERS: ATTEND Orthopaedic Surgery
DX: M75.101 Unspecified rotator cuff tear or rupture of right shoulder, not specified as traumatic (principal); M75.51 Bursitis of right shoulder; M19.011 Primary osteoarthritis, right shoulder; M62.511 Muscle wasting and atrophy, not elsewhere classified, right shoulder

== ENCOUNTER → 2019-03-20 | Outpatient (CLI) | payer OTHER | LOC: LAB.O 13:28 | PROVIDERS: ATTEND Orthopaedic Surgery | DX: Z01.818 Encounter for other preprocedural examination (principal) ==

== ENCOUNTER 2019-03-24 10:28 | Inpatient (IN) | payer OTHER ==
[2019-03-24] MEDS ORDERED: ASPIRIN (CHEWABLE) 81 MG TAB PO ONE (10:45)
[2019-03-24] MEDS ORDERED: IPRATROPIUM/ALBUTEROL 3 ML VIAL NEB ONE (10:48)
--- NOTE | 2019-03-24 10:50 | ED.PDOC ---
History of Present Illness - General Chief Complaint: Respiratory Problem Stated Complaint: Chest tightness and SOB Time Seen by Provider: 03/24/19 10:31 Source: patient, RN notes reviewed, Vital Signs reviewed - History of Present Illness Initial Comments: Pt is a 48 yo M with PMH of afib, COPD on continuous home O2, DM, HTN, who presents to ED alone for 1 week h/o nonproductive cough and SOB. Fenies fever or chills. States symptoms are worse when he lies flat. Has had chest tightness for the past 3 days. Denies palpitations or sensation of fast heart rate. Allergies/Adverse Reactions: Allergies Tramadol Allergy (Verified 03/24/19 10:49) Home Medications: Ambulatory Orders Potassium Chloride Microencaps [Klor-Con M20] 20 meq PO BID 11/24/15 HYDROcodone 10MG/APAP 325MG [[place] ] 1 ea PO TID 06/26/17 Apixaban [Eliquis] 5 mg PO BID #60 tab 07/22/17 Celecoxib 200 mg PO BID #60 cap 07/22/17 Citalopram Hydrobromide 20 mg PO BID #60 tab 07/22/17 Levothyroxine Sodium 50 mcg PO DAILY #30 tab 07/22/17 Umeclidinium [place] [Incruse Ellipta] 62.5 mcg IN DAILY #1 inh 07/22/17 metFORMIN HCL [Glucophage] 500 mg PO BID #60 tab 07/22/17 Albuterol Sulfate Nebs [Proventil Nebs] 2.5 mg INH PRN 07/24/18 Aspirin [Aspirin Childrens] 81 mg PO DAILY 07/24/18 Calcipotriene [Dovonex] 1 applic TOP BID 07/24/18 Clobetasol Propionate Emulsion [Clobetasol Propionate] 1 applic TOP BID 07/24/18 Liraglutide [Victoza] 18 mg SC DAILY 07/24/18 Spironolactone 25 mg PO DAILY 07/24/18 Lisinopril 40 mg PO BID 07/25/18 Atorvastatin Calcium 40 mg PO BEDTIME 12/20/18 Bumetanide 2 mg PO BID 12/20/18 Carvedilol 3.125 mg PO BID 12/20/18 Fluticasone Furoate-Vilanterol [Breo Ellipta] 1 inh IN DAILY 12/20/18 Metolazone 2.5 mg PO DAILY 12/20/18 Triamcinolone 0.5% Cream [Kenalog 0.5% Cream] 1 applic TOP BID 12/20/18 Cyclobenzaprine HCl [Flexeril] 10 mg PO TID #20 tab 02/01/19 Review of Systems - Review of Systems Constitutional: Denies: chills, fever, weakness EENTM: Denies: blurred vision, double vision, throat pain Respiratory: States: cough, orthopnea, short of breath Cardiology: States: chest pain. Denies: edema, palpitations, syncope Gastrointestinal/Abdominal: Denies: abdominal pain, diarrhea, nausea, vomiting Musculoskeletal: Denies: back pain, joint pain, muscle pain Neurological: Denies: headache, paresthesia Past Medical History (General) - Patient Medical History Hx Seizures: No Hx Stroke: No Hx Dementia: No Hx Asthma: Yes Hx of COPD: Yes Hx Cardiac Disorders: Yes - Afib Hx Congestive Heart Failure: Yes Hx Pacemaker: No Hx Hypertension: Yes Hx Thyroid Disease: Yes Hx Diabetes: Yes Hx Gastroesophageal Reflux: No Hx Renal Disease: No Hx Cancer: No Hx of HIV: No Hx Hepatitis C: No Hx MRSA: Yes MRSA Source:: Wound - Vaccination History Hx Tetanus, Diphtheria Vaccination: Yes Hx Influenza Vaccination: Yes Hx Pneumococcal Vaccination: Yes - Social History Hx Tobacco Use: Yes Hx Alcohol Use: Yes - stopped alcohol 20 years ago Hx Substance Use: No Hx Physical Abuse: No Hx Emotional Abuse: No Family Medical History - Family History Father Family History: Unknown Living Status: Cause of : [place] Hx Family Asthma: Yes - multiple family members Hx Family Stroke: Yes Hx Cardiac Disease: Yes - dad/brothers Hx Family Cancer: Yes - mom-breast() Hx Family;Other: PSORIASIS-mom,brother Mother Family History: Unknown Living Status: Cause of : Breast CA Physical Exam - Physical Exam General Appearance: Alert, No apparent distress, Other - Seated upright on bed, obese Ears, Nose, Throat: normal ENT inspection, normal pharynx Neck: non-tender, full range of motion, supple Respiratory: chest non-tender - Irregularly irregular, tachycardic. Good air movement with coarse BS bilaterally Cardiovascular/Chest: normal peripheral pulses, no edema, no JVD Gastrointestinal/Abdominal: non tender, soft, other - obese Back Exam: normal inspection, no CVA tenderness, no vertebral tenderness Extremity: normal range of motion, non-tender, no pedal edema Neurologic: no motor/sensory deficits, alert, normal mood/affect Skin Exam: warm/dry Progress - Progress Progress: 03/24/19 11:30 EKG repeat EKG after Cardizem IV. Afib, rate 110, nml QRS interval, nonspecific ST abnormality Will start Cardizem drip. 03/24/19 12:39 D/W Hunter Mancuso, hospitalist. Will admit 03/24/19 12:43 Pt presents with 3 day h/o SOB, cough and chest tightness. Found to be in afib with initial rate 150. Given cardizem Bolus, then started drip. Troponin and BNP unremarkable. O2 sat stable. will admit for further evaluation. - Results/Orders Results/Orders: EKG Afib with RVR, rate 150, nml QRS interval, no ST abnormality 03/24/19 10:45 Sodium Chloride 0.9% (Flush) [Saline Flush Syringe] 3 ml IV PRN PRN EKG STAT Oxygen Stat 03/24/19 11:22 EKG .ONCE 03/24/19 11:30 [id number] DRIP [Cardizem Drip] 125 mg Sodium Chloride 0.9% 100Ml [NS (NACL 0.9%) 100ml] 100 ml IVPB PRN 03/24/19 12:42 ED Intent to Admit Routine 03/25/19 09:00 Pulse Ox Daily 03/25/19 10:45 EKG STAT Laboratory Results - last 24 hr 03/24/19 10:50 WBC 11.2 H RBC 5.05 Hgb 14.6 Hct 45.3 MCV 89.7 MCH 29.0 MCHC 32.3 L RDW 16.3 H Plt Count 296 MPV 8.1 Absolute Neuts (auto) 8.70 H Absolute Lymphs (auto) 1.30 Absolute Monos (auto) 0.70 Absolute Eos (auto) 0.40 Absolute Basos (auto) 0.10 Neutrophils % 77.4 Lymphocytes % 11.6 L Monocytes % 6.5 Eosinophils % 3.8 Basophils % 0.7 PT 10.3 INR 1.03 PTT (SP) 24.5 Sodium 139 Potassium 3.8 Chloride 101 Carbon Dioxide 24 Anion Gap 17.8 BUN 21 H Creatinine 1.41 H BUN/Creatinine Ratio 14.9 Random Glucose 163 H Serum Osmolality 284.1 Calcium 9.3 Magnesium 1.9 Creatine Kinase 164 CK-MB (CK-2) 3.7 CK-MB (CK-2) % Not Reportable Troponin I 0.03 B-Natriuretic Peptide 65.1 EXAM: XR Chest, 1 View CLINICAL HISTORY: Cough, SOB TECHNIQUE: Frontal view of the chest. COMPARISON: 01/26/2019. FINDINGS: Limitations: None. Lungs: Unremarkable. No consolidation. Pleural space: Unremarkable. No pneumothorax. Heart: Stable cardiac enlargement. Mediastinum: Unremarkable. Bones/joints: Unremarkable. Vasculature: Vascular congestion present. IMPRESSION: Vascular congestion present. Electronically signed by: Kaylee Blankenship MD 03/24/2019 11:12 AM CDT Departure - Departure Clinical Impression: Atrial fibrillation with RVR Congestive heart failure Qualifiers: Heart failure type: unspecified Heart failure chronicity: unspecified Qualified Code(s): I50.9 - Heart failure, unspecified Dyspnea Qualifiers: Dyspnea type: shortness of breath Qualified Code(s): R06.02 - Shortness of breath Time of Disposition: 12:41 Disposition: Admit Patient Condition: Fair Departure Forms: ED Discharge - Pt. Copy, Patient Portal Self Enrollment Referrals: JOSY STAHL [Primary Care Provider] - 1-2 Weeks Home Medications: Ambulatory Orders Potassium Chloride Microencaps [Klor-Con M20] 20 meq PO BID 11/24/15 HYDROcodone 10MG/APAP 325MG [[place] 10/325] 1 ea PO TID 06/26/17 Apixaban [Eliquis] 5 mg PO BID #60 tab 07/22/17 Celecoxib 200 mg PO BID #60 cap 07/22/17 Citalopram Hydrobromide 20 mg PO BID #60 tab 07/22/17 Levothyroxine Sodium 50 mcg PO DAILY #30 tab 07/22/17 Umeclidinium [place] [Incruse Ellipta] 62.5 mcg IN DAILY #1 inh 07/22/17 metFORMIN HCL [Glucophage] 500 mg PO BID #60 tab 07/22/17 Albuterol Sulfate Nebs [Proventil Nebs] 2.5 mg INH PRN 07/24/18 Aspirin [Aspirin Childrens] 81 mg PO DAILY 07/24/18 Calcipotriene [Dovonex] 1 applic TOP BID 07/24/18 Clobetasol Propionate Emulsion [Clobetasol Propionate] 1 applic TOP BID 07/24/18 Liraglutide [Victoza] 18 mg SC DAILY 07/24/18 Spironolactone 25 mg PO DAILY 07/24/18 Lisinopril 40 mg PO BID 07/25/18 Atorvastatin Calcium 40 mg PO BEDTIME 12/20/18 Bumetanide 2 mg PO BID 12/20/18 Carvedilol 3.125 mg PO BID 12/20/18 Fluticasone Furoate-Vilanterol [Breo Ellipta] 1 inh IN DAILY 12/20/18 Metolazone 2.5 mg PO DAILY 12/20/18 Triamcinolone 0.5% Cream [Kenalog 0.5% Cream] 1 applic TOP BID 12/20/18 Cyclobenzaprine HCl [Flexeril] 10 mg PO TID #20 tab 02/01/19 Decision To Admit - Decistion To Admit Decision to Admit Date: 03/24/19 Decision to Admit Time: 12:39
[2019-03-24] MEDS: SODIUM CHLORIDE 0.9% (FLUSH) 10 ML SYG IV PRN (11:08)
[2019-03-24] MEDS ORDERED: diltiaZEM DRIP 125 MG in SODIUM CHLORIDE 0.9% 100ML 100 ML IVPB SCH (11:30)
[2019-03-24] MEDS ORDERED: SODIUM CHLORIDE 0.9% 100ML 100 ML IVPB ONE (11:44)
[2019-03-24] MEDS ORDERED: diltiaZEM DRIP 125 MG/25 ML VIAL IVPB ONE (11:45)
--- NOTE | 2019-03-24 12:13 | RAD ---
EXAM: XR Chest, 1 View CLINICAL HISTORY: Cough, SOB TECHNIQUE: Frontal view of the chest. COMPARISON: 01/26/2019. FINDINGS: Limitations: None. Lungs: Unremarkable. No consolidation. Pleural space: Unremarkable. No pneumothorax. Heart: Stable cardiac enlargement. Mediastinum: Unremarkable. Bones/joints: Unremarkable. Vasculature: Vascular congestion present. IMPRESSION: Vascular congestion present. Electronically signed by: Kaylee Blankenship MD 03/24/2019 11:12 AM CDT
[2019-03-24] MEDS ORDERED: HYDROcodone 5MG/APAP 325MG 1 EA TAB PO ONE (12:55)
--- NOTE | 2019-03-24 13:56 | HP ---
SUPERVISING PHYSICIAN: Dale Cramer MD CHIEF COMPLAINT: Increasing shortness of breath. HISTORY OF PRESENT ILLNESS: Mr. Brandon is a 48-year-old, male patient who presented to the Emergency Room today complaining of increasing shortness of breath. He notes that about a week ago he developed an upper respiratory congestive type cold. He was started on Mucinex but it continued to worsen, all through last week. He does utilize a noninvasive inhalation at night due to his body habitus and morbid obesity. He denied any actual chest pains but noted his symptoms significantly worse when he lies flat. He also notes that normally he does not utilize his inhalation except at night but now has been using it continually given his symptomatology. In the Emergency Room, his laboratory studies showed he had a w BUN of 21, creatinine 1.14. Liver functions all within normal limits. BNP normal at 65 as well as troponin a 0.03. Urinalysis showed 100 of protein, otherwise within normal limits. Chest x-ray in the Emergency Room, single-view chest, per radiology interpretation showed vascular congestion present. The patient does have a history of atrial fibrillation and will need special monitor. His heart rate was in the 150s, although the patient does not report any palpitations. At that point, he was given Cardizem IV which did slow his rate down into the 110s. He is now going to need sodium with Cardizem drip and admitted for ongoing treatment and further evaluation. PAST MEDICAL HISTORY: 1. Chronic obstructive pulmonary disease. 2. Obstructive sleep apnea 3. Chronic psoriasis. 4. Atrial fibrillation on chronic Eliquis therapy. 5. Hypothyroidism. 6. Hyperlipidemia. 7. Hypertension. 8. Type 2 diabetes mellitus. PAST SURGICAL HISTORY: No majors surgeries listed. CURRENT MEDICATIONS: 1, Xopenex 0,63 mg every 4 hours as needed. 2. Flexeril 10 mg 3 times a day as needed. 3. Aspirin 81 mg daily. 4. Eliquis 5 mg b.i.d. 5. Clobetasol topically t.i.d. 6. Citalopram 20 mg daily. 7. Carvedilol 6.25 mg b.i.d. 8. Dovonex 1 b.i.d. 9. Bumex 2 mg b.i.d. 10. Incruse Ellipta 62.5 mcg daily. 11. Kenalog. 12. Spironolactone 25 mg daily. 13. Potassium chloride 20 mEq b.i.d. 14. Metolazone 2,5 mg daily. 15. Lisinopril 40 mg daily. 16. Atorvastatin Calcium 40 mg daily. 17. Levothyroxine 50 mcg daily. 18. Monroe 10/325 1 t.i.d. as needed for pain. 18, Brio Ellipta inhaled 1 daily. ALLERGIES: TRAMADOL. FAMILY HISTORY: Positive for breast cancer in his mother as well as he has had multiple family members who have had diabetes, hypertension and cardiovascular disease. SOCIAL HISTORY: The patient is disabled. He lives in [place] with his brother and [id number]. He was a previous smoker but quit 10 years prior and denies any alcohol usage. REVIEW OF SYSTEMS: CONSTITUTIONAL: Negative for any generalized weakness or unintentional weight loss. No reported fever or chills. HEENT: Positive for nasal congestion. Negative for headaches, vision changes, sore throats, earaches. RESPIRATORY: Positive for worsening shortness of breath, dyspnea, chronically on 02 with some orthopnea. CARDIOVASCULAR: History of atrial fibrillation on Coreg for rate control, Eliquis. Denies chest pain, palpitations or syncopal episodes. GASTROINTESTINAL: Negative for nausea, vomiting, diarrhea, constipation or abdominal pain. GENITOURINARY: Negative for dysuria, hematuria, polyuria or other urinary symptoms. MUSCULOSKELETAL: Generalized malaise, arthralgias. INTEGUMENTARY: Chronic changes due to psoriasis. PHYSICAL EXAMINATION: VITAL SIGNS: Temperature on admission was 98.4. Pulse 150. Blood pressure 146/87. Respirations 24 to 28 with some mild respiratory distress, O2 saturation 96% on 2 liters nasal cannula. Admission weight 199 kg. GENERAL: The patient is morbidly obese showing to be in no acute distress, he is sitting up on the edge of the bed due to breathing. HEENT: Tympanic membranes clear bilaterally. Oropharynx is pink, moist without any lesions. NECK: Supple, nontender with full range of motion. No jugular venous distention noted. RESPIRATORY: Denies any coarse breath sounds throughout, diminished towards the bases without any rales. There was some slight expiratory wheezing. CARDIOVASCULAR: Regular rate and rhythm without any appreciable murmurs, gallops, or rubs. ABDOMEN: Obese but soft, nontender. Positive bowel sounds. EXTREMITIES: There is no edema. BACK: Without any CVA or vertebral tenderness. NEUROLOGIC: Cranial nerves II through XII are grossly intact. Facial features are symmetrical. Extraocular movements are within normal limits with no notable nystagmus. SKIN: Warm, pink and dry with areas of chronic psoriasis changes on the upper and lower extremities, overlying elbows and knees. LABORATORY: White count 11,200, hemoglobin 14.6, hematocrit 45.3, early platelet count 296,000, differential does show a left shift. Coagulation studies show normal PT, PTT. Blood gases pending. Chemistries show normal electrolytes with BUN 21, creatinine 1.41. Liver function within normal limits. Magnesium 1.9. Urinalysis showed 100 protein, otherwise within normal limits. MICROBIOLOGY: Blood cultures pending. RADIOLOGY: Chest x-ray, single-view, showed some vascular congestion present. ASSESSMENT: 1. Acute on chronic atrial fibrillation with rapid ventricular response with patient being on Coreg for rate control and chronic Eliquis probably due worsening respiratory status and upper respiratory infection and developing community acquired pneumonia. 2. Acute exacerbation of chronic obstructive pulmonary disease with bilateral pneumonia. 3. Acute renal insufficiency probably showing some exacerbation from current medications including multiple diuretics. 4. Type 2 diabetes mellitus on oral therapy. 5. Hypothyroidism on supplementation. 6. Obstructive sleep apnea utilizing BiPAP at night. 7. Depression. 8. Cervical and lumbar radiculitis secondary to extreme body habitus. 9. Severe morbid obesity with body mass index of greater than 58. PLAN: Mr. Brandon is going to be admitted for close cardiac monitoring and initiation of Cardizem drip in attempts to get control of his ventricular rate. Since he is on a beta shaggy, we will try to see if we can get him controlled before we get him off the Cardizem and then continue with oral beta blockers if possible. If not, we may have to go back to Cardizem. I will go ahead and start him on antibiotic coverage with Rocephin, given his underlying rhythm and history will put him on doxycycline. He will be on DVT prophylaxis with continued Eliquis. As soon as his medications have been updated and verified, we will resume those as appropriate. We will anticipate his length of stay to be at least two or three days, probably discharge sooner than Tuesday, if not probably Tuesday. Until we can transition to outpatient management, we will continue to monitor and treat as needed. #[id number] [facility]
[2019-03-24] MEDS ORDERED: NITROGLYCERIN 0.4 MG/HR PATCH TOP ONE (14:56)
[2019-03-24] MEDS ORDERED: DEXTROSE 50% 25 GM/50 ML SYG IV PRN (14:58)
[2019-03-24] MEDS ORDERED: SODIUM CHLORIDE 0.9% (FLUSH) 10 ML SYG IV PRN (14:58)
[2019-03-24] MEDS ORDERED: ONDANSETRON INJ 4 MG/2 ML VIAL IV PRN (14:58)
[2019-03-24] MEDS ORDERED: GLUCAGON INJ 1 MG VIAL SUBCU PRN (14:58)
[2019-03-24] MEDS ORDERED: METOPROLOL TARTRATE INJ 5 MG/5 ML VIAL IV ONE ×3 (15:44→17:03)
[2019-03-24] MEDS ORDERED: SODIUM CHL 0.9% 50ML MIN-BAG+ 50 ML IVPB ONE (16:08)
[2019-03-24] MEDS ORDERED: SODIUM CHLORIDE 0.9% 250ML 250 ML ONE (16:08)
[2019-03-24] MEDS ORDERED: cefTRIAXone SODIUM 1 GM VIAL ONE (16:08)
[2019-03-24] MEDS ORDERED: DOXYCYCLINE HYCLATE IV 100 MG VIAL IVPB ONE (16:08)
[2019-03-24] MEDS: cefTRIAXone SODIUM 1 GM in SODIUM CHL 0.9% 50ML MIN-BAG+ 50 ML IVPB SCH (16:11)
[2019-03-24] MEDS: IV SET AND CAP CHANGE INJ INJ SCH (16:33)
[2019-03-24] MEDS: INSULIN LISPRO 100 UNITS/ML PEN SUBCU SCH ×2 (16:34→21:13)
[2019-03-24] MEDS: DOXYCYCLINE HYCLATE IV 100 MG in SODIUM CHLORIDE 0.9% 250ML 250 ML IVPB SCH (16:40)
[2019-03-24] MEDS: BUMETANIDE TAB 2 MG TAB PO SCH (19:13)
[2019-03-24] MEDS: CITALOPRAM HBR 20 MG TAB PO SCH (19:14)
[2019-03-24] MEDS: APIXABAN 5 MG TAB PO SCH (19:14)
[2019-03-24] MEDS: LISINOPRIL 10 MG TAB PO SCH (19:14)
[2019-03-24] MEDS: CARVEDILOL 3.125 MG TAB PO SCH (19:15)
[2019-03-24] MEDS: CALCIPOTRIENE TOP SCH (19:15)
[2019-03-24] MEDS: ATORVASTATIN 20 MG TAB PO SCH (19:15)
[2019-03-24] MEDS: HYDROcodone 10MG/APAP 325MG 1 EA TAB PO PRN (19:15)
[2019-03-24] MEDS: TRIAMCINOLONE 0.5% CREAM 15 GM TUBE TOP SCH (19:15)
[2019-03-25] MEDS ORDERED: SODIUM CHLORIDE 0.9% 250ML 250 ML ONE ×3 (00:56→19:33)
[2019-03-25] MEDS ORDERED: DOXYCYCLINE HYCLATE IV 100 MG VIAL IVPB ONE ×3 (00:57→19:33)
[2019-03-25] MEDS: HYDROcodone 10MG/APAP 325MG 1 EA TAB PO PRN (01:06)
[2019-03-25] MEDS: DOXYCYCLINE HYCLATE IV 100 MG in SODIUM CHLORIDE 0.9% 250ML 250 ML IVPB SCH ×2 (04:22→17:17)
[2019-03-25] MEDS: ACETAMINOPHEN 325 MG TAB PO PRN (04:39)
[2019-03-25] MEDS: PANTOPRAZOLE SODIUM IV 40 MG VIAL IV SCH (06:17)
[2019-03-25] MEDS: LEVOTHYROXINE SODIUM 0.025 MG TAB PO SCH (06:18)
[2019-03-25] MEDS: INSULIN LISPRO 100 UNITS/ML PEN SUBCU SCH ×4 (07:40→21:28)
[2019-03-25] MEDS: APIXABAN 5 MG TAB PO SCH ×2 (08:38→20:33)
[2019-03-25] MEDS: BUMETANIDE TAB 2 MG TAB PO SCH ×2 (08:38→20:33)
[2019-03-25] MEDS: metOLazone 2.5 MG TAB PO SCH (08:38)
[2019-03-25] MEDS: CITALOPRAM HBR 20 MG TAB PO SCH ×2 (08:38→20:33)
[2019-03-25] MEDS: ASPIRIN (CHEWABLE) 81 MG TAB PO SCH (08:38)
[2019-03-25] MEDS: LISINOPRIL 10 MG TAB PO SCH ×2 (08:38→20:33)
[2019-03-25] MEDS: CARVEDILOL 3.125 MG TAB PO SCH ×2 (08:38→20:34)
--- NOTE | 2019-03-25 08:43 | RAD ---
: 1970. TECHNIQUE: PA and lateral views of the chest. Comparison: March 24, 2019. Clinical history: Pneumonia. Heart size: Heart size is moderately enlarged and the vessels are congested. Lungs: No acute consolidation. Pleura: No pleural effusion. No pneumothorax. Mediastinum and david: Unremarkable. Skeletal: Unremarkable. IMPRESSION: 1. Cardiomegaly and vascular congestion. Electronically signed by: Adolph Hawk MD 03/25/2019 8:41 AM CDT
[2019-03-25] MEDS: CALCIPOTRIENE TOP SCH ×2 (09:34→20:35)
[2019-03-25] MEDS: NON-FORMULARY MEDICATION 1 EA MIS (Liraglutide [Victoza] 18 MG) SC SCH (09:34)
[2019-03-25] MEDS: TRIAMCINOLONE 0.5% CREAM 15 GM TUBE TOP SCH ×2 (09:34→20:34)
[2019-03-25] MEDS ORDERED: methylPREDNISolone SODIUM SUC 125 MG/2 ML VIAL IV ONE (13:55)
--- NOTE | 2019-03-25 15:36 | PN ---
DATE: 03/25/19 SUPERVISING PHYSICIAN: Dale Cramer MD SUBJECTIVE: The patient notes his breathing is a little bit better today. He has been afebrile and still having a nonproductive cough. He did well on the Cardizem drip which we were able to stop last night and start him on his Coreg and has been maintaining his rate since that time. OBJECTIVE: VITAL SIGNS: Temperature 92, pulse 87, blood pressure 113/82, respirations 20, oxygen saturation 96% on 3 liters nasal cannula. GENERAL: The patient is sitting on edge of bed but appears in no acute distress. CHEST: Lung sounds are a little improved from yesterday with no longer hearing any wheezing. Still remains a little diminished on the right compared to the left. HEART: Slightly irregular rate and rhythm without any appreciable murmurs, rubs, or gallops. Showing a controlled ventricular rate on the monitor with atrial fibrillation. ABDOMEN: Obese, soft, non-tender, positive bowel sounds. EXTREMITIES: Without edema. NEUROLOGIC: Alert and oriented x 3. LABORATORY: White count down to 10,300, hemoglobin 14.4, hematocrit 44.5, platelet count 307,000. Differential shows to be without a left shift. Blood gas analysis yesterday showed on 3 liter nasal cannula a pH of 7.37 with PO2 of 81, oxygen saturation 95%, PCO2 of 47, bicarb 26. Chemistries today showed normal electrolytes with BUN of 17, creatinine down to 1.35. Blood sugars remained between 78 and 129. Calcium 8.7. Urinalysis showed 100 protein, otherwise within normal limits. RADIOLOGY: 2-view chest this morning per radiology interpretation shows cardiomegaly and vascular congestion. ASSESSMENT: 1. Acute on chronic atrial fibrillation with initial rapid ventricular response, now with controlled rate after being on Cardizem drip with continued Coreg and Eliquis. 2. Acute exacerbation of chronic obstructive pulmonary disease with bilateral pneumonia. 3. Acute renal insufficiency how back to baseline after fluids. 4. Type 2 diabetes mellitus on oral therapy. 5. Hypothyroidism on supplementation. 6. Obstructive sleep apnea utilizing BiPAP at night. 7. Depression. 8. Cervical and lumbar radiculopathy secondary to extreme body habitus. 9. Severe morbid obesity with body mass index of greater than 58. PLAN: At this point will continue with beta blockers for rate control. I had him on Rocephin and doxycycline for underlying treatment of the questionable community acquired pneumonia. It is hard to see on his x-ray whether or not it is congestion versus actual pneumonia process but at this point he is improving on antibiotics. Therefore, will continue that plan of care. He remains on DVT prophylaxis with Eliquis. We resumed his home medications. I anticipate hopefully being able to discharge him by tomorrow or Tuesday,. Until the, we will continue to monitor and treat as needed. #[id number] [facility]
[2019-03-25] MEDS ORDERED: SODIUM CHL 0.9% 50ML MIN-BAG+ 50 ML IVPB ONE (17:11)
[2019-03-25] MEDS ORDERED: cefTRIAXone SODIUM 1 GM VIAL ONE (17:12)
[2019-03-25] MEDS: cefTRIAXone SODIUM 1 GM in SODIUM CHL 0.9% 50ML MIN-BAG+ 50 ML IVPB SCH (17:17)
[2019-03-25] MEDS ORDERED: METOPROLOL TARTRATE INJ 5 MG/5 ML VIAL IV ONE (18:18)
[2019-03-25] MEDS ORDERED: diltiaZEM DRIP 125 MG/25 ML VIAL IVPB ONE (20:01)
[2019-03-25] MEDS ORDERED: SODIUM CHLORIDE 0.9% 100ML 100 ML IVPB ONE (20:01)
[2019-03-25] MEDS: methylPREDNISolone SODIUM SUC 40 MG/ML VIAL IV SCH ×2 (20:19→23:40)
[2019-03-25] MEDS ORDERED: diltiaZEM DRIP 125 MG in SODIUM CHLORIDE 0.9% 100ML 100 ML IVPB SCH (20:30)
[2019-03-25] MEDS: ATORVASTATIN 20 MG TAB PO SCH (20:33)
[2019-03-25] MEDS: guaiFENesin ER TAB 600 MG TAB PO SCH (20:33)
[2019-03-25] MEDS: BUDESONIDE NEBS 0.5 MG/2 ML INH NEB SCH (20:47)
[2019-03-26] MEDS: DOXYCYCLINE HYCLATE IV 100 MG in SODIUM CHLORIDE 0.9% 250ML 250 ML IVPB SCH ×2 (04:35→15:58)
[2019-03-26] MEDS: PANTOPRAZOLE SODIUM IV 40 MG VIAL IV SCH (05:42)
[2019-03-26] MEDS: LEVOTHYROXINE SODIUM 0.025 MG TAB PO SCH (05:42)
[2019-03-26] MEDS: INSULIN LISPRO 100 UNITS/ML PEN SUBCU SCH ×4 (07:47→21:08)
[2019-03-26] MEDS: BUDESONIDE NEBS 0.5 MG/2 ML INH NEB SCH ×2 (08:35→21:20)
[2019-03-26] MEDS: CARVEDILOL 3.125 MG TAB PO SCH (08:39)
[2019-03-26] MEDS: HYDROcodone 10MG/APAP 325MG 1 EA TAB PO PRN (08:39)
[2019-03-26] MEDS: metOLazone 2.5 MG TAB PO SCH (08:40)
[2019-03-26] MEDS: APIXABAN 5 MG TAB PO SCH ×2 (08:40→20:24)
[2019-03-26] MEDS: guaiFENesin ER TAB 600 MG TAB PO SCH ×2 (08:41→20:24)
[2019-03-26] MEDS: BUMETANIDE TAB 2 MG TAB PO SCH ×2 (08:41→20:24)
[2019-03-26] MEDS: CITALOPRAM HBR 20 MG TAB PO SCH ×2 (08:41→20:24)
[2019-03-26] MEDS: PROMETHAZINE W/CODEINE SYR 5 ML UD PO PRN (08:47)
[2019-03-26] MEDS ORDERED: FUROSEMIDE INJ 40 MG/4 ML VIAL IV ONE (10:36)
[2019-03-26] MEDS: TRIAMCINOLONE 0.5% CREAM 15 GM TUBE TOP SCH ×2 (11:05→20:24)
[2019-03-26] MEDS: ASPIRIN (CHEWABLE) 81 MG TAB PO SCH (11:05)
[2019-03-26] MEDS: CALCIPOTRIENE TOP SCH ×2 (11:16→20:25)
[2019-03-26] MEDS: NON-FORMULARY MEDICATION 1 EA MIS (Liraglutide [Victoza] 18 MG) SC SCH (11:17)
[2019-03-26] MEDS: LISINOPRIL 10 MG TAB PO SCH (12:06)
--- NOTE | 2019-03-26 13:28 | PN ---
SUPERVISING PHYSICIAN: Zachary Starks MD DATE: 03/26/19 SUBJECTIVE: The patient really does not have any complaints of shortness of breath today. He is rather stoic and states he does not feel well, but otherwise cannot really be specific. Last night, he was started on a Cardizem drip due to atrial fibrillation with rapid ventricular response. This is the second time this admission he has to be placed on this. OBJECTIVE: VITAL SIGNS: Blood pressure 106/60. Heart rate 84. Temperature afebrile. O2 saturation 98%. GENERAL: Mr. Brandon is a 48-year-old male patient in no active distress. NEUROLOGIC: Alert and oriented. LUNGS: Diminished in the bases with expiratory wheezing. CARDIOVASCULAR: Irregular rate and rhythm. Normal S1, S2. ABDOMEN: Obese, soft. Positive bowel sounds. EXTREMITIES: Lower extremities with some edema noted. ASSESSMENT: 1. Acute on chronic atrial fibrillation requiring diltiazem drip. 2. Acute exacerbation of chronic obstructive pulmonary disease, improving. 3. Acute renal insufficiency. 4. Type 2 diabetes mellitus. 5. Hypothyroidism. 6. Obstructive sleep apnea utilizing BiPAP at night. 7. Depression. 8. Cervical and lumbar radiculopathy. 9. Morbid obesity. PLAN: Due to the repeated need for Cardizem drip, I did speak to Dr. Fenton, the x ray equipment tester who the patient saw at [facility] last night and he indicates he wants to see him in [place]. Rate is controlled and the Cardizem was just turned off. I relayed that information to Dr. Fenton. At this time, we will reduce the lisinopril to once a day and increase the dose of carvedilol to 12.5 mg b.i.d. The patient was under the impression that the diltiazem p.o. that he was getting before caused renal issues and I relayed that information to Dr. Fenton. We were in agreement that diltiazem would not cause any renal issues and he is probably more at risk from the lisinopril than the diltiazem. However, we will stick with carvedilol at this time to try to maintain rate control. Dr. Fenton said he would accept the patient at [facility] if we were unable to adequately control the heart rate here. Given the fact that the heart rate is controlled at this time, we will see what the increase in the p.o. carvedilol does. If he has a third episode or we need to resume the drip, I will get him transferred to where he can be with his x ray equipment tester. #[id number] [facility]
[2019-03-26] MEDS ORDERED: SODIUM CHLORIDE 0.9% 250ML 250 ML ONE ×2 (14:50→19:31)
[2019-03-26] MEDS ORDERED: SODIUM CHL 0.9% 50ML MIN-BAG+ 50 ML IVPB ONE (14:51)
[2019-03-26] MEDS ORDERED: DOXYCYCLINE HYCLATE IV 100 MG VIAL IVPB ONE ×2 (14:51→19:31)
[2019-03-26] MEDS ORDERED: cefTRIAXone SODIUM 1 GM VIAL ONE (14:51)
[2019-03-26] MEDS: cefTRIAXone SODIUM 1 GM in SODIUM CHL 0.9% 50ML MIN-BAG+ 50 ML IVPB SCH (15:01)
[2019-03-26] MEDS: SODIUM CHLORIDE 0.9% (FLUSH) 10 ML SYG IV PRN (20:24)
[2019-03-26] MEDS: ATORVASTATIN 20 MG TAB PO SCH (20:24)
[2019-03-26] MEDS: CARVEDILOL 12.5 MG TAB PO SCH (20:24)
[2019-03-27] MEDS: DOXYCYCLINE HYCLATE IV 100 MG in SODIUM CHLORIDE 0.9% 250ML 250 ML IVPB SCH ×2 (03:49→17:19)
[2019-03-27] MEDS: LEVOTHYROXINE SODIUM 0.025 MG TAB PO SCH (06:10)
[2019-03-27] MEDS: PANTOPRAZOLE SODIUM IV 40 MG VIAL IV SCH (06:10)
[2019-03-27] MEDS: INSULIN LISPRO 100 UNITS/ML PEN SUBCU SCH ×4 (07:09→21:03)
--- NOTE | 2019-03-27 07:15 | RAD ---
EXAM DESCRIPTION: Chest,1 View CLINICAL HISTORY: CHF, pneumonia COMPARISON: March 25, 2019 FINDINGS: The study is limited by underpenetrated technique. Multiple superimposed EKG leads. The left costophrenic angle is also excluded from this exam. With this in mind, the cardiac silhouette is enlarged but stable from the prior study. Accounting for technique, no airspace consolidation or pleural effusion is identified. The central bronchovascular markings are indistinct. There is no pneumothorax or acute fracture. IMPRESSION: Limited exam as detailed above with stable cardiomegaly and central pulmonary vascular congestion. Electronically signed by: Dougie Guerrero MD 03/27/2019 7:13 AM CDT
[2019-03-27] MEDS: CITALOPRAM HBR 20 MG TAB PO SCH ×2 (09:03→20:44)
[2019-03-27] MEDS: ASPIRIN (CHEWABLE) 81 MG TAB PO SCH (09:03)
[2019-03-27] MEDS: BUMETANIDE TAB 2 MG TAB PO SCH ×2 (09:03→20:43)
[2019-03-27] MEDS: guaiFENesin ER TAB 600 MG TAB PO SCH ×2 (09:03→20:44)
[2019-03-27] MEDS: APIXABAN 5 MG TAB PO SCH ×2 (09:03→20:44)
[2019-03-27] MEDS: CARVEDILOL 12.5 MG TAB PO SCH ×2 (09:03→20:44)
[2019-03-27] MEDS: LISINOPRIL 10 MG TAB PO SCH (09:04)
[2019-03-27] MEDS: metOLazone 2.5 MG TAB PO SCH (09:04)
[2019-03-27] MEDS: CALCIPOTRIENE TOP SCH ×2 (09:15→20:43)
[2019-03-27] MEDS: TRIAMCINOLONE 0.5% CREAM 15 GM TUBE TOP SCH ×2 (09:16→20:45)
[2019-03-27] MEDS: NON-FORMULARY MEDICATION 1 EA MIS (Liraglutide [Victoza] 18 MG) SC SCH (09:16)
--- NOTE | 2019-03-27 09:58 | PN ---
SUPERVISING PHYSICIAN: Zachary Starks MD DATE: 03/27/19 SUBJECTIVE: The patient states he generally does not feel well. He has an intermittent cough, not productive. He has no complaints of nausea or vomiting. He is sleeping with the BiPAP in place right now. OBJECTIVE: VITAL SIGNS: Blood pressure 119/82. Heart rate 65. Respiratory rate 18. Temperature 98.2. O2 saturation 96%. GENERAL: Mr. Brandon is a 48-year-old male patient in no active distress currently. NEUROLOGIC: Alert and oriented. LUNGS: Diminished with expiratory wheezing mainly in the left. CARDIOVASCULAR: Irregular rate and rhythm. Normal S1, S2. Atrial fibrillation per the air sampling and monitoring. Rate controlled in the 90s at rest. ABDOMEN: Obese, soft. Positive bowel sounds. EXTREMITIES: Lower extremities with some edema noted. LABORATORY: White count 19.3, hemoglobin 15.0, hematocrit 46.4, platelet count 308. Sodium 135, potassium 3.2, chloride 90, CO2 29, BUN 36, creatinine 1.82, glucose 134, calcium 8.9. Chest x-ray this morning still with cardiomegaly and central vascular congestion. ASSESSMENT: 1. Atrial fibrillation with rapid ventricular response, now with a controlled rate at rest. 2. Acute exacerbation of chronic obstructive pulmonary disease. 3. Acute renal insufficiency. 4. Type 2 diabetes mellitus. 5. Hypothyroidism. 6. Obstructive sleep apnea requiring BiPAP at night. 7. Depression. 8. Cervical and lumbar radiculopathy. 9. Morbid obesity. PLAN: His rate is controlled at rest with the carvedilol. However, it does get up a little bit higher when he is active, into the 120s. We will continue the carvedilol for now and see what happens with his rate today. He does have the sensation that he needs to cough something up, so I am going to go ahead and start him on Vest therapy and see if that helps. I believe his leukocytosis is likely due to the steroid. I will start tapering that down starting tomorrow. [facility][id number] [facility]
[2019-03-27] MEDS: BUDESONIDE NEBS 0.5 MG/2 ML INH NEB SCH ×2 (10:06→20:53)
[2019-03-27] MEDS ORDERED: SODIUM CHLORIDE 0.9% 250ML 250 ML ONE ×2 (15:05→19:19)
[2019-03-27] MEDS ORDERED: SODIUM CHL 0.9% 50ML MIN-BAG+ 50 ML IVPB ONE (15:05)
[2019-03-27] MEDS ORDERED: cefTRIAXone SODIUM 1 GM VIAL ONE (15:06)
[2019-03-27] MEDS ORDERED: DOXYCYCLINE HYCLATE IV 100 MG VIAL IVPB ONE ×2 (15:06→19:20)
[2019-03-27] MEDS: IV SET AND CAP CHANGE INJ INJ SCH (16:31)
[2019-03-27] MEDS: cefTRIAXone SODIUM 1 GM in SODIUM CHL 0.9% 50ML MIN-BAG+ 50 ML IVPB SCH (16:41)
[2019-03-27] MEDS: ACETAMINOPHEN 325 MG TAB PO PRN (17:19)
[2019-03-27] MEDS: PROMETHAZINE W/CODEINE SYR 5 ML UD PO PRN (17:19)
[2019-03-27] MEDS: ATORVASTATIN 20 MG TAB PO SCH (20:44)
[2019-03-27] MEDS: SODIUM CHLORIDE 0.9% (FLUSH) 10 ML SYG IV PRN (20:45)
[2019-03-27] MEDS: LEVALBUTEROL NEBS 0.63 MG/3 ML VIAL NEB PRN (20:53)
[2019-03-28] MEDS: DOXYCYCLINE HYCLATE IV 100 MG in SODIUM CHLORIDE 0.9% 250ML 250 ML IVPB SCH ×2 (04:05→16:37)
[2019-03-28] MEDS: LEVOTHYROXINE SODIUM 0.025 MG TAB PO SCH (06:20)
[2019-03-28] MEDS: PANTOPRAZOLE SODIUM IV 40 MG VIAL IV SCH (06:20)
[2019-03-28] MEDS: INSULIN LISPRO 100 UNITS/ML PEN SUBCU SCH ×4 (07:28→21:27)
[2019-03-28] MEDS: metOLazone 2.5 MG TAB PO SCH (08:57)
[2019-03-28] MEDS: ASPIRIN (CHEWABLE) 81 MG TAB PO SCH (08:57)
[2019-03-28] MEDS: BUMETANIDE TAB 2 MG TAB PO SCH (08:57)
[2019-03-28] MEDS: CITALOPRAM HBR 20 MG TAB PO SCH ×2 (08:57→21:25)
[2019-03-28] MEDS: LISINOPRIL 10 MG TAB PO SCH (08:57)
[2019-03-28] MEDS: guaiFENesin ER TAB 600 MG TAB PO SCH ×2 (08:57→21:25)
[2019-03-28] MEDS: CARVEDILOL 12.5 MG TAB PO SCH ×2 (08:57→21:25)
[2019-03-28] MEDS: APIXABAN 5 MG TAB PO SCH ×2 (08:57→21:25)
[2019-03-28] MEDS: CALCIPOTRIENE TOP SCH ×2 (08:58→21:44)
[2019-03-28] MEDS: NON-FORMULARY MEDICATION 1 EA MIS (Liraglutide [Victoza] 18 MG) SC SCH (08:58)
[2019-03-28] MEDS: TRIAMCINOLONE 0.5% CREAM 15 GM TUBE TOP SCH ×2 (08:58→21:26)
[2019-03-28] MEDS: LEVALBUTEROL NEBS 0.63 MG/3 ML VIAL NEB PRN (09:12)
[2019-03-28] MEDS: BUDESONIDE NEBS 0.5 MG/2 ML INH NEB SCH ×2 (09:12→20:41)
[2019-03-28] MEDS ORDERED: SODIUM CHLORIDE 0.9% 250ML 250 ML ONE ×2 (15:52→19:55)
[2019-03-28] MEDS ORDERED: SODIUM CHL 0.9% 50ML MIN-BAG+ 50 ML IVPB ONE (15:52)
[2019-03-28] MEDS ORDERED: DOXYCYCLINE HYCLATE IV 100 MG VIAL IVPB ONE ×2 (15:53→19:55)
[2019-03-28] MEDS ORDERED: cefTRIAXone SODIUM 1 GM VIAL ONE (15:53)
[2019-03-28] MEDS: cefTRIAXone SODIUM 1 GM in SODIUM CHL 0.9% 50ML MIN-BAG+ 50 ML IVPB SCH (16:05)
--- NOTE | 2019-03-28 20:16 | PN ---
DATE: 03/28/19 SUPERVISING PHYSICIAN: Zachary Starks M.D. SUBJECTIVE: The patient states he feels a little bit better today and he is actually coughing up some sputum. No complaints of significant shortness of breath. OBJECTIVE: VITAL SIGNS: Blood pressure 112/78, heart rate 93, respiratory rate 20, temperature 98.0, oxygen saturation 96%. GENERAL: Mr. Brandon is a 48 year-old male patient in no active distress. NEUROLOGIC: The patient is alert and oriented. LUNGS: Still with expiratory wheezing. CARDIOVASCULAR: Irregular rate and rhythm, rate is in the 90s. ABDOMEN: Soft, obese. Positive bowel sounds. EXTREMITIES: Lower extremities with edema still noted. LABORATORY: Show normal white count at 10.2, hemoglobin is stable at 16.0. BUN and creatinine are up at 49 and 2.10 respectively. ASSESSMENT: 1. Atrial fibrillation with rapid ventricular response with a controlled rate on Carvedilol. 2. Acute exacerbation of chronic obstructive pulmonary disease which is improving slowly. 3. Acute renal insufficiency with elevated BUN and creatinine. 4. Type 2 diabetes mellitus. 5. Hypothyroidism. 6. Obstructive sleep apnea requiring BiPAP at night. 7. Depression. 8. Cervical and lumbar radiculopathy. 9. Morbid obesity. PLAN: Still on the steroids. Will continue these. His BUN and creatinine continue to elevate so I am holding his diuretics for now. It seems like his pulmonary hygiene is working and he is starting to cough stuff up. It has been required that he ambulates 2 to 3 times a day at least in the hallway as well. Hopefully he will go home on Tuesday if everything continues to improve. #[id number] [facility]
[2019-03-28] MEDS: ATORVASTATIN 20 MG TAB PO SCH (21:25)
[2019-03-29] MEDS: DOXYCYCLINE HYCLATE IV 100 MG in SODIUM CHLORIDE 0.9% 250ML 250 ML IVPB SCH ×2 (04:20→17:00)
[2019-03-29] MEDS: PANTOPRAZOLE SODIUM IV 40 MG VIAL IV SCH (06:11)
[2019-03-29] MEDS: LEVOTHYROXINE SODIUM 0.025 MG TAB PO SCH (06:11)
[2019-03-29] MEDS: INSULIN LISPRO 100 UNITS/ML PEN SUBCU SCH ×4 (07:24→21:07)
[2019-03-29] MEDS: LEVALBUTEROL NEBS 0.63 MG/3 ML VIAL NEB PRN ×2 (08:44→20:06)
[2019-03-29] MEDS: BUDESONIDE NEBS 0.5 MG/2 ML INH NEB SCH ×2 (08:44→20:05)
[2019-03-29] MEDS: LISINOPRIL 10 MG TAB PO SCH (09:01)
[2019-03-29] MEDS: CALCIPOTRIENE TOP SCH ×2 (09:02→21:44)
[2019-03-29] MEDS: CARVEDILOL 12.5 MG TAB PO SCH ×2 (09:02→20:45)
[2019-03-29] MEDS: APIXABAN 5 MG TAB PO SCH ×2 (09:02→20:45)
[2019-03-29] MEDS: CITALOPRAM HBR 20 MG TAB PO SCH ×2 (09:02→20:45)
[2019-03-29] MEDS: ASPIRIN (CHEWABLE) 81 MG TAB PO SCH (09:02)
[2019-03-29] MEDS: guaiFENesin ER TAB 600 MG TAB PO SCH ×2 (09:02→20:45)
[2019-03-29] MEDS: TRIAMCINOLONE 0.5% CREAM 15 GM TUBE TOP SCH ×2 (09:05→20:46)
[2019-03-29] MEDS: NON-FORMULARY MEDICATION 1 EA MIS (Liraglutide [Victoza] 18 MG) SC SCH (09:05)
[2019-03-29] MEDS ORDERED: BUMETANIDE 0.25 MG/ML VIAL IV SCH (12:00)
[2019-03-29] MEDS: predniSONE 20 MG TAB PO SCH (13:06)
--- NOTE | 2019-03-29 13:12 | PN ---
SUPERVISING PHYSICIAN: Zachary Starks MD DATE: 03/29/19 SUBJECTIVE: The patient is lying in bed asleep. He awakens easily. He continues to be short of breath. He did say he was coughing up a lot of thick, yellow phlegm, but he continues to be weak. There are no complaints of nausea, vomiting or chest pain. OBJECTIVE: VITAL SIGNS: Temperature 97.6. Heart rate 82. Blood pressure 92/64. Respiratory rate 18. O2 saturation 94% on 3 liters nasal cannula. RESPIRATORY: Scattered rhonchi throughout, very diminished at the bases. CARDIAC: Regular rate and rhythm. GASTROINTESTINAL: Abdomen is soft, he is obese. Bowel sounds are positive. NEUROLOGIC: Awake, alert and oriented times three. LABORATORY: WBCs 11.8, hemoglobin 15.6, hematocrit 48.5. Potassium slightly low at 3.5, chloride 89, carbon dioxide 33, BUN 49, creatinine 2.1. Blood sugars have run between 94 and 123. Preliminary blood cultures show no growth after 4 days. All other labs and films have been reviewed via the EMR. ASSESSMENT: 1. Atrial fibrillation with rapid ventricular response with a controlled rate on carvedilol. 2. Acute exacerbation of chronic obstructive pulmonary disease which is improving slowly. 3. Acute renal insufficiency with elevated BUN and creatinine. 4. Type 2 diabetes mellitus. 5. Hypothyroidism. 6. Obstructive sleep apnea requiring BiPAP at night. 7. Depression. 8. Cervical and lumbar radiculopathy. 9. Morbid obesity. PLAN: We will continue present supportive care. His steroids have been tapered to oral steroids. We will continue to hold his diuretics for now due to his elevated creatinine. I will start the Bumex at a low dose tomorrow. He is continuing to cough up quite a bit of phlegm and we will continue with his aggressive pulmonary hygiene. Again, he is to ambulate as frequently as possible in the hallways. Hopefully he can be discharged tomorrow or Tuesday. I have ordered a chest x-ray and lab for tomorrow. We will continue to monitor the patient closely and follow as needed. #[id number] [facility] [place]
[2019-03-29] MEDS ORDERED: SODIUM CHLORIDE 0.9% 250ML 250 ML ONE (16:19)
[2019-03-29] MEDS ORDERED: DOXYCYCLINE HYCLATE IV 100 MG VIAL IVPB ONE (16:20)
[2019-03-29] MEDS ORDERED: cefTRIAXone SODIUM 1 GM VIAL ONE (16:20)
[2019-03-29] MEDS ORDERED: SODIUM CHL 0.9% 50ML MIN-BAG+ 50 ML IVPB ONE (16:20)
[2019-03-29] MEDS: cefTRIAXone SODIUM 1 GM in SODIUM CHL 0.9% 50ML MIN-BAG+ 50 ML IVPB SCH (16:27)
[2019-03-29] MEDS: ATORVASTATIN 20 MG TAB PO SCH (20:45)
[2019-03-30] MEDS ORDERED: SODIUM CHLORIDE 0.9% 250ML 250 ML ONE ×2 (03:23→15:37)
[2019-03-30] MEDS ORDERED: DOXYCYCLINE HYCLATE IV 100 MG VIAL IVPB ONE ×2 (03:23→15:38)
[2019-03-30] MEDS: DOXYCYCLINE HYCLATE IV 100 MG in SODIUM CHLORIDE 0.9% 250ML 250 ML IVPB SCH ×2 (03:43→17:10)
[2019-03-30] MEDS: LEVOTHYROXINE SODIUM 0.025 MG TAB PO SCH (06:18)
[2019-03-30] MEDS: PANTOPRAZOLE SODIUM IV 40 MG VIAL IV SCH (06:18)
--- NOTE | 2019-03-30 06:46 | RAD ---
EXAM: XR Chest, 2 Views CLINICAL HISTORY: The patient is 48 years old and is Male; copd TECHNIQUE: Frontal and lateral views of the chest. COMPARISON: z chest radiograph from 03/27/2019 FINDINGS: LIMITATIONS: The left costophrenic angle is incompletely imaged on the frontal view. LUNGS: Slight increased density in the left lung base on the frontal view is favored to be artifactual. The lungs are otherwise clear. PLEURAL SPACE: Unremarkable. No pneumothorax. HEART: Stable mild enlargement of the cardiac silhouette. MEDIASTINUM: Unremarkable. BONES/JOINTS: No acute osseous findings. IMPRESSION: No acute findings visualized in the chest. Electronically signed by: Zoe Reece MD 03/30/2019 6:44 AM CDT
[2019-03-30] MEDS: INSULIN LISPRO 100 UNITS/ML PEN SUBCU SCH ×4 (07:23→21:03)
[2019-03-30] MEDS: CALCIPOTRIENE TOP SCH ×2 (08:33→20:24)
[2019-03-30] MEDS: NON-FORMULARY MEDICATION 1 EA MIS (Liraglutide [Victoza] 18 MG) SC SCH (08:33)
[2019-03-30] MEDS: TRIAMCINOLONE 0.5% CREAM 15 GM TUBE TOP SCH ×2 (08:34→20:24)
[2019-03-30] MEDS: CITALOPRAM HBR 20 MG TAB PO SCH ×2 (08:49→20:23)
[2019-03-30] MEDS: predniSONE 20 MG TAB PO SCH (08:49)
[2019-03-30] MEDS: CARVEDILOL 12.5 MG TAB PO SCH ×2 (08:49→20:23)
[2019-03-30] MEDS: ASPIRIN (CHEWABLE) 81 MG TAB PO SCH (08:49)
[2019-03-30] MEDS: guaiFENesin ER TAB 600 MG TAB PO SCH ×2 (08:49→20:23)
[2019-03-30] MEDS: LISINOPRIL 10 MG TAB PO SCH (08:49)
[2019-03-30] MEDS: APIXABAN 5 MG TAB PO SCH ×2 (08:49→20:23)
[2019-03-30] MEDS: LEVALBUTEROL NEBS 0.63 MG/3 ML VIAL NEB PRN ×2 (08:52→20:20)
[2019-03-30] MEDS: BUDESONIDE NEBS 0.5 MG/2 ML INH NEB SCH ×2 (08:52→20:20)
[2019-03-30] MEDS ORDERED: BUMETANIDE 0.25 MG/ML VIAL IV SCH (09:00)
[2019-03-30] MEDS ORDERED: POTASSIUM CHLORIDE 20 MEQ TAB PO ONE (10:03)
--- NOTE | 2019-03-30 11:07 | PN ---
SUPERVISING PHYSICIAN: Zachary Starks MD DATE: 03/30/19 SUBJECTIVE: The patient is sitting up on the side of the bed. He states he feels much better today. He is still quite weak and gets short of breath with exertion, but has coughed up a log of phlegm and is feeling stronger today. He denies chest pain, nausea, vomiting, diarrhea or constipation. OBJECTIVE: VITAL SIGNS: Temperature 98. Heart rate 85. Blood pressure 113/72. Respiratory rate 20. O2 saturation 93% on 3 liters nasal cannula. RESPIRATORY: Diminished at the bases, but much improved since yesterday. A few mild scattered rhonchi in the apices. CARDIAC: Regular rate and rhythm. GASTROINTESTINAL: Abdomen is soft, nontender, nondistended. Bowel sounds are positive. NEUROLOGIC: Awake, alert and oriented times three. LABORATORY: WBCs 14.9, hemoglobin 15.9, hematocrit 49.5. He has a left shift on his differential. Sodium 134, potassium 3.3, chloride 90. BUN 45, creatinine improved to 1.51. Blood sugars have run between 100 and 158. Liver enzymes are unremarkable. Final blood cultures show no growth. Chest x-ray shows no acute findings visualized in the chest. All other labs and films have been reviewed via the EMR. ASSESSMENT: 1. Atrial fibrillation with rapid ventricular response with a controlled rate on carvedilol. 2. Acute exacerbation of chronic obstructive pulmonary disease, improving. 3. Acute renal insufficiency with elevated BUN and creatinine. 4. Type 2 diabetes mellitus. 5. Hypothyroidism. 6. Obstructive sleep apnea requiring BiPAP at night. 7. Depression. 8. Cervical and lumbar radiculopathy. 9. Morbid obesity. PLAN: We will continue present supportive care. He is on oral steroids at this time. His creatinine and kidney function have improved, so I will slowly add back his diuretics. I have started him on 1 mg of Bumex b.i.d. today. He will start his Spironolactone tomorrow. I have given him some potassium supplementation and encouraged him to ambulate at least 4 to 5 times in the hallways. We will repeat his lab in the morning and hopefully he can be discharged home tomorrow or the next days. We will continue to monitor the patient closely and follow as needed. #[id number] [facility]
[2019-03-30] MEDS: IV SET AND CAP CHANGE INJ INJ SCH (15:00)
[2019-03-30] MEDS ORDERED: cefTRIAXone SODIUM 1 GM VIAL ONE (15:38)
[2019-03-30] MEDS ORDERED: SODIUM CHL 0.9% 50ML MIN-BAG+ 50 ML IVPB ONE (15:38)
[2019-03-30] MEDS: cefTRIAXone SODIUM 1 GM in SODIUM CHL 0.9% 50ML MIN-BAG+ 50 ML IVPB SCH (16:52)
[2019-03-30] MEDS: BUMETANIDE TAB 2 MG TAB PO SCH (18:30)
[2019-03-30] MEDS: ATORVASTATIN 20 MG TAB PO SCH (20:23)
[2019-03-31] MEDS ORDERED: SODIUM CHLORIDE 0.9% 250ML 250 ML ONE (03:16)
[2019-03-31] MEDS ORDERED: DOXYCYCLINE HYCLATE IV 100 MG VIAL IVPB ONE (03:16)
[2019-03-31] MEDS: DOXYCYCLINE HYCLATE IV 100 MG in SODIUM CHLORIDE 0.9% 250ML 250 ML IVPB SCH ×2 (03:41→17:41)
[2019-03-31] MEDS: LEVOTHYROXINE SODIUM 0.025 MG TAB PO SCH (05:58)
[2019-03-31] MEDS: PANTOPRAZOLE SODIUM IV 40 MG VIAL IV SCH (05:58)
[2019-03-31] MEDS: INSULIN LISPRO 100 UNITS/ML PEN SUBCU SCH ×3 (07:07→16:44)
[2019-03-31] MEDS: BUDESONIDE NEBS 0.5 MG/2 ML INH NEB SCH (08:58)
[2019-03-31] MEDS ORDERED: SPIRONOLACTONE 25 MG TAB PO SCH (09:00)
[2019-03-31] MEDS: CALCIPOTRIENE TOP SCH (09:59)
[2019-03-31] MEDS: guaiFENesin ER TAB 600 MG TAB PO SCH (10:01)
[2019-03-31] MEDS: predniSONE 20 MG TAB PO SCH (10:02)
[2019-03-31] MEDS: CITALOPRAM HBR 20 MG TAB PO SCH (10:02)
[2019-03-31] MEDS: CARVEDILOL 12.5 MG TAB PO SCH (10:02)
[2019-03-31] MEDS: BUMETANIDE TAB 2 MG TAB PO SCH (10:02)
[2019-03-31] MEDS: APIXABAN 5 MG TAB PO SCH (10:02)
[2019-03-31] MEDS: LISINOPRIL 10 MG TAB PO SCH (10:02)
[2019-03-31] MEDS: ASPIRIN (CHEWABLE) 81 MG TAB PO SCH (10:16)
[2019-03-31] MEDS: TRIAMCINOLONE 0.5% CREAM 15 GM TUBE TOP SCH (10:16)
[2019-03-31] MEDS: NON-FORMULARY MEDICATION 1 EA MIS (Liraglutide [Victoza] 18 MG) SC SCH (10:16)
[2019-03-31 12:12] VITALS: TEMP 97.8
[2019-03-31 15:13] VITALS: BP 116/72; O2SAT 96
[2019-03-31] MEDS: cefTRIAXone SODIUM 1 GM in SODIUM CHL 0.9% 50ML MIN-BAG+ 50 ML IVPB SCH (17:41)
--- NOTE | 2019-04-01 14:43 | DS ---
SUPERVISING PHYSICIAN: Zachary Starks MD DISCHARGE DIAGNOSES: 1. Atrial fibrillation with rapid ventricular response with a controlled rate on carvedilol. 2. Acute exacerbation of chronic obstructive pulmonary disease, improving. 3. Acute renal insufficiency with elevated BUN and creatinine that have improved. 4. Type 2 diabetes mellitus. 5. Hypothyroidism. 6. Obstructive sleep apnea requiring BiPAP at night. 7. Depression. 8. Cervical and lumbar radiculopathy. 9. Morbid obesity. HISTORY OF PRESENT ILLNESS: Mr. Brandon is a 48-year-old, male patient who presented to the Emergency Room today complaining of increasing shortness of breath. He notes that about a week ago he developed an upper respiratory congestive type cold. He was started on Mucinex but it continued to worsen, all through last week. He does utilize a noninvasive inhalation at night due to his body habitus and morbid obesity. He denied any actual chest pains but noted his symptoms significantly worse when he lies flat. He also notes that normally he does not utilize his inhalation except at night but now has been using it continually given his symptomatology. In the Emergency Room, his laboratory studies showed he had a w BUN of 21, creatinine 1.14. Liver functions all within normal limits. BNP normal at 65 as well as troponin a 0.03. Urinalysis showed 100 of protein, otherwise within normal limits. Chest x-ray in the Emergency Room, single-view chest, per radiology interpretation showed vascular congestion present. The patient does have a history of atrial fibrillation and will need special monitor. His heart rate was in the 150s, although the patient does not report any palpitations. At that point, he was given Cardizem IV which did slow his rate down into the 110s. He is now going to need sodium with Cardizem drip and admitted for ongoing treatment and further evaluation. HOSPITAL COURSE: The patient was admitted for close cardiac monitoring. He had a Cardizem drip to get control of his ventricular rate. His beta shaggy He was also given some Rocephin and doxycycline. He is also on DVT prophylaxis with his Eliquis. He had a difficult time breathing initially and had aggressive pulmonary hygiene. He improved very slowly on antibiotics. He continued to be very weak over his hospital stay and had to be encouraged to ambulate. He again went into a rapid ventricular response and had to be restarted on his Cardizem. Dr. Fenton, his professor of surgery at [facility], will see him in [place]. His carvedilol was increased to 12.5 mg twice a day. He was also restarted on his Cardizem. His rate was controlled at rest with the carvedilol but with activity initially his heart rate would dip into the 120s. Again, the aggressive pulmonary hygiene was continued His steroids were tapered off of IV to oral steroids. Yesterday, he actually had lung sounds that were much improved and he was able to walk more frequently in the hallways. His rate was controlled on the higher dosing of Coreg and there was no Cardizem continued. Today, he will be discharged home in stable condition with close followup with Dr. Ashford as well as Dr. Fenton. LABORATORY: WBCs at 10,300, it went as well as high of 19,300 and today is 14,500. Hemoglobin 15.9, hematocrit 49 were stable. He has a normal differential today. His blood sugars ran between 78 and 177. Potassium was down several times as low as 3.2 and he required supplementation. Otherwise, his electrolytes were unremarkable. Creatinine got as high as 2.1 and is now down to 1.73. Liver enzymes were within normal limits. Urinalysis was unremarkable. Blood cultures showed no growth after 5 days. RADIOLOGY: Initial chest x-ray is as per the history of present illness. His final chest x-ray showed no acute findings visualized in the chest. DISCHARGE PLAN: The patient will be discharged home in stable condition. He is to resume his previous diet, increase his activity as tolerated. He is to followup with Dr. Ashford within one to two weeks as well as Dr. Fenton, his professor of surgery within one to two weeks in addition to his routine medications and the elevated dosing of carvedilol. He is to continue on Cefdinir for 7 days, doxycycline for 7 days, a steroid taper and guaifenesin. I have also sent in a new prescription of the increased dose of carvedilol. He is to return to the hospital or call Dr. Fenton or Dr. Ashford's office for any problems or complications. DISCHARGE MEDIATIONS: 1. Potassium chloride. 2. Hydrocodone. 3. Eliquis. 4. Citalopram. 5. Calcipotriene. 6. Incruse Ellipta. 7. Spironolactone. 8. Victoza. 9. Clobetasol. 10. Dovonex. 11. Aspirin. 12. Lisinopril. 13. Fluticasone. 14. Metolazone.. 15. Carvedilol. 16. Atorvastatin. 17. Bumetanide. 18. Triamcinolone. 19. Levalbuterol. 20. Cyclobenzaprine. 21. Cefdinir. 22. Doxycycline. 23. Guaifenesin. 24. Prednisone.. #[id number] [facility]
== END 2019-03-31 17:50 | disposition home or self-care (01) | DRG 308 ==
LOC: ER 10:28 → MS 13:55 → OBSVTOIN 13:55
PROVIDERS: ADMIT Nurse Practitioner Family; ATTEND Nurse Practitioner Acute Care
DX: I48.20 Chronic atrial fibrillation, unspecified (principal); J18.9 Pneumonia, unspecified organism; J44.1 Chronic obstructive pulmonary disease with (acute) exacerbation; Z68.44 Body mass index [BMI] 60.0-69.9, adult; N28.9 Disorder of kidney and ureter, unspecified; E11.9 Type 2 diabetes mellitus without complications; E03.9 Hypothyroidism, unspecified; G47.33 Obstructive sleep apnea (adult) (pediatric); F32.9 Major depressive disorder, single episode, unspecified; M54.12 Radiculopathy, cervical region; M54.16 Radiculopathy, lumbar region; L40.9 Psoriasis, unspecified; E78.5 Hyperlipidemia, unspecified; I10 Essential (primary) hypertension; E66.01 Morbid (severe) obesity due to excess calories; Z79.01 Long term (current) use of anticoagulants; Z79.82 Long term (current) use of aspirin; Z79.891 Long term (current) use of opiate analgesic; Z88.5 Allergy status to narcotic agent; Z87.891 Personal history of nicotine dependence; Z79.84 Long term (current) use of oral hypoglycemic drugs